=== PATIENT | female | born 1965 | race Caucasian/White ===

== ENCOUNTER 2016-09-08 19:10 | Emergency (ER) | payer OTHER ==
[~2016-09-08] VITALS: Ht 170.2 cm; Wt 102.3 kg
[~2016-09-08 19:10] MED LIST: CEFUROXIME500 MG PO; ESTRADIOL1 EA11 TD; LEVOFLOXACIN750 MG PO; MOBIC15 MG PO; NEXIUM20 MG PO; NEXIUM40 MG PO; SYNTHROID112 MCG PO
[2016-09-08 20:03] LABS: HEMATOCRIT 42.3 % (36.0-46.0); MCH 28.8 PG (29.0-34.0); MCHC 32.9 G/DL (30.0-36.0); MCV 87.8 FL (83-99); MEAN PLAT.VOLUME 10.1 uM^3 (9.5-12.4); PLATELET COUNT 275 K/uL (156-360); RBC DIS.WIDTH-CV 12.2 % (11.8-14.6); RBC DIS.WIDTH-SD 39.4 % (39-53); RED BLOOD COUNT 4.82 M/uL (3.80-5.20); WHITE BLOOD COUNT 7.9 K/uL (4.1-10.2)
[2016-09-08 20:12] LABS: CHLORIDE 107 mEq/L (99-109); POTASSIUM 4.4 mEq/L (3.7-5.4); SODIUM 138 mEq/L (136-147)
[2016-09-08 20:14] LABS: GLUCOSE 104 mg/dL (70-99)
[2016-09-08 20:15] LABS: ANION GAP 9 MEQ/L (2-14)
[2016-09-08 20:17] LABS: GFR ESTIMATE (CALCULATED) > 59 mL/min/
[2016-09-08 20:18] LABS: UREA NITROGEN (BUN) 13 mg/dL (9-23)
[2016-09-08 20:18] LABS: D-DIMER ELISA 0.28 mg/L FEU (< 0.57)
[2016-09-08 20:24] LABS: TROP-I INTERPRETATION NEGATIVE; TROPONIN-I < 0.01 ng/mL (0.0-0.30)
[2016-09-08 23:22] VITALS: BP 117/84
== END 2016-09-08 23:22 | disposition home or self-care (01) ==
LOC: EME 19:10
DX: R00.2 Palpitations (principal); E03.9 Hypothyroidism, unspecified; Z88.5 Allergy status to narcotic agent; Z91.041 Radiographic dye allergy status
CPT/HCPCS: 71020; 80048; 84443; 84484; 85027; 85379; 93005; 93971; 99281; 99285; J2060; J7030

== ENCOUNTER 2016-09-16 14:36 | Emergency (ER) | payer OTHER, BC ==
[~2016-09-16] VITALS: Ht 170.2 cm; Wt 100.0 kg
[2016-09-16 15:06] VITALS: BP 132/90
[2016-09-16 15:29] LABS: MCH 28.7 PG (29.0-34.0); MCHC 32.4 G/DL (30.0-36.0); MCV 88.6 FL (83-99); PLATELET COUNT 295 K/uL (156-360); RBC DIS.WIDTH-CV 12.2 % (11.8-14.6); RED BLOOD COUNT 4.74 M/uL (3.80-5.20); WHITE BLOOD COUNT 6.1 K/uL (4.1-10.2)
[2016-09-16 15:41] LABS: CHLORIDE 108 mEq/L (99-109); POTASSIUM 4.5 mEq/L (3.7-5.4); SODIUM 141 mEq/L (136-147)
[2016-09-16 15:42] LABS: GLUCOSE 106 mg/dL (70-99)
[2016-09-16 15:44] LABS: ANION GAP 8 MEQ/L (2-14)
[2016-09-16 15:46] LABS: GFR ESTIMATE (CALCULATED) > 59 mL/min/
[2016-09-16 15:47] LABS: UREA NITROGEN (BUN) 11 mg/dL (9-23)
[2016-09-16 15:53] LABS: TROP-I INTERPRETATION NEGATIVE; TROPONIN-I < 0.01 ng/mL (0.0-0.30)
== END 2016-09-16 18:05 | disposition left against medical advice (07) ==
LOC: EME 14:36
DX: R42 Dizziness and giddiness (principal); R07.89 Other chest pain; R20.0 Anesthesia of skin; R20.2 Paresthesia of skin; R11.0 Nausea; Z53.21 Procedure and treatment not carried out due to patient leaving prior to being seen by health care provider
CPT/HCPCS: 71020; 80048; 84484; 85027; 93005

== ENCOUNTER 2016-10-05 16:22 | Emergency (ER) | payer BC ==
[~2016-10-05] VITALS: Ht 170.2 cm; Wt 106.6 kg
[2016-10-05 17:11] LABS: EOSINOPHIL (%) 2.8 % (0-5); EOSINOPHIL COUNT 0.2 K/uL (0-0.3); HEMATOCRIT 40.9 % (36.0-46.0); IMMATURE GRANULOCYTE (%) 0.2 % (0.0-0.7); INSTRUMENT ABS NEUTROPHIL CT 3.5 K/uL; LYMPHOCYTE COUNT 2.3 K/uL (1.0-2.8); MCH 28.9 PG (29.0-34.0); MCHC 32.5 G/DL (30.0-36.0); MCV 88.9 FL (83-99); MEAN PLAT.VOLUME 9.3 uM^3 (9.5-12.4); MONOCYTE (%) 6.8 % (3-12); MONOCYTE COUNT 0.4 K/uL (0-0.8); NEUTROPHIL (%) 53.9 % (45-76); NEUTROPHIL COUNT 3.5 K/uL (1.8-6.4); PLATELET COUNT 252 K/uL (156-360); RBC DIS.WIDTH-CV 12.4 % (11.8-14.6); RBC DIS.WIDTH-SD 40.4 % (39-53); WHITE BLOOD COUNT 6.5 K/uL (4.1-10.2)
[2016-10-05 17:20] LABS: CHLORIDE 108 mEq/L (99-109); SODIUM 139 mEq/L (136-147)
[2016-10-05 17:21] LABS: MAGNESIUM 1.7 mg/dL (1.3-2.7)
[2016-10-05 17:22] LABS: GLUCOSE 119 mg/dL (70-99)
[2016-10-05 17:23] LABS: ANION GAP 10 MEQ/L (2-14)
[2016-10-05 17:24] LABS: D-DIMER ELISA 0.38 mg/L FEU (< 0.57); INTER. NORMALIZED RATIO 0.9; PROTHROMBIN TIME 9.5 (9.2-11.2); PTT 25.8 (25-32)
[2016-10-05 17:26] LABS: GFR ESTIMATE (CALCULATED) > 59 mL/min/
[2016-10-05 17:27] LABS: UREA NITROGEN (BUN) 12 mg/dL (9-23)
[2016-10-05 17:33] LABS: TROP-I INTERPRETATION NEGATIVE; TROPONIN-I < 0.01 ng/mL (0.0-0.30)
[2016-10-05 19:06] VITALS: BP 123/80
== END 2016-10-05 19:06 | disposition home or self-care (01) ==
LOC: EME 16:22
PROVIDERS: Emergency Medicine
DX: R00.2 Palpitations (principal); E03.9 Hypothyroidism, unspecified
CPT/HCPCS: 71010; 80048; 83735; 84484; 85025; 85379; 85610; 85730; 93005; 99281; 99285; J7030

== ENCOUNTER 2016-10-07 18:58 | Observation (INO) | payer BC ==
[~2016-10-07] VITALS: Ht 170.2 cm; Wt 103.2 kg
[2016-10-07 20:15] LABS: HEMATOCRIT 43.6 % (36.0-46.0); MCH 29.1 PG (29.0-34.0); MCV 88.3 FL (83-99); MEAN PLAT.VOLUME 9.8 uM^3 (9.5-12.4); PLATELET COUNT 275 K/uL (156-360); RBC DIS.WIDTH-CV 12.4 % (11.8-14.6); RBC DIS.WIDTH-SD 39.8 % (39-53); RED BLOOD COUNT 4.94 M/uL (3.80-5.20); WHITE BLOOD COUNT 7.6 K/uL (4.1-10.2)
[2016-10-07 20:29] LABS: CHLORIDE 107 mEq/L (99-109); SODIUM 139 mEq/L (136-147)
[2016-10-07 20:30] LABS: GLUCOSE 125 mg/dL (70-99)
[2016-10-07 20:32] LABS: ANION GAP 11 MEQ/L (2-14)
[2016-10-07 20:34] LABS: GFR ESTIMATE (CALCULATED) > 59 mL/min/
[2016-10-07 20:35] LABS: UREA NITROGEN (BUN) 16 mg/dL (9-23)
[2016-10-07 20:40] LABS: TROP-I INTERPRETATION NEGATIVE; TROPONIN-I < 0.01 ng/mL (0.0-0.30)
[2016-10-07 21:10] LABS: TOTAL BILIRUBIN 0.2 mg/dL (0.0-1.0)
[2016-10-07 21:11] LABS: ALKALINE PHOSPHATASE 59 IU/L (3-129)
[2016-10-07 21:14] LABS: DIRECT BILIRUBIN 0.1 mg/dL (0.0-0.3)
[2016-10-07 21:15] LABS: LIPASE 18 U/L (1.0-51.0)
[2016-10-07 23:18] VITALS: BP 119/74
[2016-10-08 03:57] VITALS: BP 90/54
[2016-10-08 05:23] LABS: HEMATOCRIT 37.7 % (36.0-46.0); MCH 29.6 PG (29.0-34.0); MCHC 33.2 G/DL (30.0-36.0); MCV 89.1 FL (83-99); MEAN PLAT.VOLUME 10.4 uM^3 (9.5-12.4); PLATELET COUNT 240 K/uL (156-360); RBC DIS.WIDTH-CV 12.6 % (11.8-14.6); RBC DIS.WIDTH-SD 41.2 % (39-53); RED BLOOD COUNT 4.23 M/uL (3.80-5.20); WHITE BLOOD COUNT 5.7 K/uL (4.1-10.2)
[2016-10-08 05:32] LABS: TROP-I INTERPRETATION NEGATIVE; TROPONIN-I < 0.01 ng/mL (0.0-0.30)
[2016-10-08 05:56] LABS: ALKALINE PHOSPHATASE 40 IU/L (3-129); ANION GAP 9 MEQ/L (2-14); CHLORIDE 108 MEQ/L (99-109); GFR ESTIMATE (CALCULATED) > 59 mL/min/; GLUCOSE 98 mg/dL (70-99); POTASSIUM 3.9 MEQ/L (3.7-5.4); SAMPLE HEMOLYSIS CHECK 0; SAMPLE ICTERIC CHECK 0; SAMPLE LIPEMIA CHECK 0; SODIUM 140 MEQ/L (136-147); TOTAL BILIRUBIN 0.4 MG/DL (0.0-1.0); UREA NITROGEN (BUN) 15 mg/dL (9-23)
[2016-10-08 06:11] VITALS: BP 110/73; BP 96/53
[2016-10-08 06:12] VITALS: BP 111/72
[2016-10-08 06:14] VITALS: BP 110/73; BP 111/72; BP 96/53
[2016-10-08 06:55] LABS: Estimated Average Glucose 128 mg/dL (70-123); HEMOGLOBIN A1c (GLYCOHEMOGLOB) 6.1 % HGB (Below 5.7)
[2016-10-08 08:45] VITALS: BP 117/59
[2016-10-08 09:50] LABS: TROP-I INTERPRETATION NEGATIVE; TROPONIN-I < 0.01 ng/mL (0.0-0.30)
[2016-10-08] MEDS ORDERED: ESTRADIOL1 EA12 TD (10:56)
[2016-10-08] MEDS ORDERED: LEVOTHYROXINE100 MCG PO (10:57)
[2016-10-08] MEDS ORDERED: VITAMIN C GUMMY PO (10:58)
[2016-10-08] MEDS ORDERED: LEVOTHYROXINE112 MCG PO (10:58)
[2016-10-08] MEDS ORDERED: [UNRECOGNIZED DRUG - OTHER] PO (11:01)
[2016-10-08] MEDS ORDERED: NITROSTAT0.4 MG SL (11:02)
[2016-10-08 11:40] VITALS: BP 122/84
== END 2016-10-08 12:58 | disposition home or self-care (01) ==
LOC: EME 18:58 → EDOF 21:46 → 5WEST 21:46 → EDOF 21:46 → 5WEST 22:57
PROVIDERS: Internal Medicine
DX: R07.9 Chest pain, unspecified (principal); R10.12 Left upper quadrant pain; Z91.19 Patient's noncompliance with other medical treatment and regimen; R42 Dizziness and giddiness; R00.2 Palpitations; G47.33 Obstructive sleep apnea (adult) (pediatric); E03.9 Hypothyroidism, unspecified; R73.9 Hyperglycemia, unspecified; E66.9 Obesity, unspecified; Z68.35 Body mass index [BMI] 35.0-35.9, adult; M79.89 Other specified soft tissue disorders
CPT/HCPCS: 71020; 74176; 80048; 80053; 80076; 83036; 83690; 84443; 84484; 85027; 93005; 94760; 94799; 99281; 99285; G0378; J1644; J7030

== ENCOUNTER 2016-10-13 18:21 | Emergency (ER) | payer BC ==
[~2016-10-13] VITALS: Ht 170.2 cm; Wt 105.1 kg
[~2016-10-13 18:21] MED LIST changes: +ESTRADIOL1 EA12 TD; +LEVOTHYROXINE100 MCG PO; +LEVOTHYROXINE112 MCG PO; +NITROSTAT0.4 MG SL; +VITAMIN C GUMMY PO; +[UNRECOGNIZED DRUG - OTHER] PO
[2016-10-13 19:09] LABS: MCHC 32.9 G/DL (30.0-36.0); PLATELET COUNT 275 K/uL (156-360); RBC DIS.WIDTH-CV 12.4 % (11.8-14.6); RBC DIS.WIDTH-SD 40.1 % (39-53); RED BLOOD COUNT 4.66 M/uL (3.80-5.20); WHITE BLOOD COUNT 6.7 K/uL (4.1-10.2)
[2016-10-13 19:17] LABS: CHLORIDE 106 mEq/L (99-109); POTASSIUM 3.8 mEq/L (3.7-5.4); SODIUM 137 mEq/L (136-147)
[2016-10-13 19:19] LABS: GLUCOSE 115 mg/dL (70-99)
[2016-10-13 19:21] LABS: ANION GAP 9 MEQ/L (2-14)
[2016-10-13 19:23] LABS: GFR ESTIMATE (CALCULATED) > 59 mL/min/
[2016-10-13 19:24] LABS: UREA NITROGEN (BUN) 13 mg/dL (9-23)
[2016-10-13 19:31] LABS: TROP-I INTERPRETATION NEGATIVE; TROPONIN-I < 0.01 ng/mL (0.0-0.30)
[2016-10-13 20:00] VITALS: BP 104/82
== END 2016-10-13 20:11 | disposition home or self-care (01) ==
LOC: EME 18:21
PROVIDERS: Emergency Medicine
DX: R42 Dizziness and giddiness (principal); R00.2 Palpitations; I10 Essential (primary) hypertension; K21.9 Gastro-esophageal reflux disease without esophagitis
CPT/HCPCS: 80048; 83735; 84484; 85027; 93005; 99281; 99284

== ENCOUNTER 2016-10-16 20:12 | Emergency (ER) | payer BC ==
[~2016-10-16] VITALS: Ht 170.2 cm; Wt 103.9 kg
[2016-10-16 20:52] LABS: HEMATOCRIT 42.1 % (36.0-46.0); MCV 87.9 FL (83-99); MEAN PLAT.VOLUME 10.1 uM^3 (9.5-12.4); PLATELET COUNT 284 K/uL (156-360); RBC DIS.WIDTH-CV 12.2 % (11.8-14.6); RBC DIS.WIDTH-SD 39.9 % (39-53); RED BLOOD COUNT 4.79 M/uL (3.80-5.20); WHITE BLOOD COUNT 7.8 K/uL (4.1-10.2)
[2016-10-16 21:08] LABS: CHLORIDE 107 mEq/L (99-109); POTASSIUM 4.1 mEq/L (3.7-5.4); SODIUM 139 mEq/L (136-147)
[2016-10-16 21:10] LABS: GLUCOSE 122 mg/dL (70-99)
[2016-10-16 21:11] LABS: ANION GAP 10 MEQ/L (2-14)
[2016-10-16 21:13] LABS: TROP-I INTERPRETATION NEGATIVE; TROPONIN-I < 0.01 ng/mL (0.0-0.30)
[2016-10-16 21:14] LABS: GFR ESTIMATE (CALCULATED) > 59 mL/min/
[2016-10-16 21:15] LABS: UREA NITROGEN (BUN) 12 mg/dL (9-23)
[2016-10-16 21:18] LABS: ADD MIUA? NO; BILIRUBIN NEGATIVE; BLOOD NEGATIVE; COLOR YELLOW ((YELLOW)); GLUCOSE (STRIP) NEGATIVE; KETONES NEGATIVE; LEUKOCYTES NEGATIVE; NITRITE NEGATIVE; PROTEIN (STRIP) NEGATIVE; SPECIFIC GRAVITY 1.013 (1.000-1.030); UCUL ADDED? NO; UROBILINOGEN 0.2 MG/DL (0.2-1.0)
[2016-10-16 21:43] LABS: TOTAL BILIRUBIN 0.2 mg/dL (0.0-1.0)
[2016-10-16 21:44] LABS: ALKALINE PHOSPHATASE 57 IU/L (3-129)
[2016-10-16 21:47] LABS: LIPASE 19 U/L (1.0-51.0)
[2016-10-16] MEDS ORDERED: REGLAN10 MG PO (22:14)
[2016-10-16 22:24] VITALS: BP 121/62
== END 2016-10-16 22:33 | disposition home or self-care (01) ==
LOC: EME 20:12
DX: K21.0 Gastro-esophageal reflux disease with esophagitis (principal); K44.9 Diaphragmatic hernia without obstruction or gangrene; I10 Essential (primary) hypertension
CPT/HCPCS: 71020; 80048; 80076; 81003; 83690; 84484; 85027; 93005; 99281; 99285; J2765; J7030

== ENCOUNTER 2016-11-10 16:56 | Emergency (ER) | payer BC ==
[~2016-11-10] VITALS: Ht 170.2 cm; Wt 104.9 kg
[~2016-11-10 16:56] MED LIST changes: +REGLAN10 MG PO
[2016-11-10 18:56] LABS: HEMATOCRIT 41.1 % (36.0-46.0); MCH 28.5 PG (29.0-34.0); MCHC 32.4 G/DL (30.0-36.0); MEAN PLAT.VOLUME 9.8 uM^3 (9.5-12.4); PLATELET COUNT 272 K/uL (156-360); RBC DIS.WIDTH-CV 12.3 % (11.8-14.6); RBC DIS.WIDTH-SD 39.5 % (39-53); RED BLOOD COUNT 4.67 M/uL (3.80-5.20); WHITE BLOOD COUNT 7.2 K/uL (4.1-10.2)
[2016-11-10 19:08] LABS: CHLORIDE 108 mEq/L (99-109); POTASSIUM 4.2 mEq/L (3.7-5.4); SODIUM 139 mEq/L (136-147)
[2016-11-10 19:10] LABS: GLUCOSE 108 mg/dL (70-99)
[2016-11-10 19:11] LABS: ANION GAP 7 MEQ/L (2-14)
[2016-11-10 19:13] LABS: GFR ESTIMATE (CALCULATED) > 59 mL/min/
[2016-11-10 19:14] LABS: UREA NITROGEN (BUN) 10 mg/dL (9-23)
[2016-11-10 20:16] VITALS: BP 142/98
== END 2016-11-10 20:18 | disposition home or self-care (01) ==
LOC: EME 16:56
PROVIDERS: Emergency Medicine
DX: B34.9 Viral infection, unspecified (principal)
CPT/HCPCS: 71020; 80048; 85027; 87651 90; 99281; 99285; J7030

== ENCOUNTER 2016-11-13 02:33 | Emergency (ER) | payer BC ==
[~2016-11-13] VITALS: Ht 170.2 cm; Wt 102.7 kg
[2016-11-13 02:58] LABS: HEMATOCRIT 40.6 % (36.0-46.0); MCH 28.9 PG (29.0-34.0); MCHC 32.8 G/DL (30.0-36.0); MCV 88.1 FL (83-99); MEAN PLAT.VOLUME 9.7 uM^3 (9.5-12.4); PLATELET COUNT 275 K/uL (156-360); RBC DIS.WIDTH-CV 12.5 % (11.8-14.6); RBC DIS.WIDTH-SD 40.3 % (39-53); RED BLOOD COUNT 4.61 M/uL (3.80-5.20); WHITE BLOOD COUNT 9.2 K/uL (4.1-10.2)
[2016-11-13 03:09] LABS: CHLORIDE 105 mEq/L (99-109); POTASSIUM 3.7 mEq/L (3.7-5.4); SODIUM 138 mEq/L (136-147)
[2016-11-13 03:12] LABS: GLUCOSE 118 mg/dL (70-99)
[2016-11-13 03:13] LABS: ANION GAP 10 MEQ/L (2-14); TOTAL BILIRUBIN 0.7 mg/dL (0.0-1.0)
[2016-11-13 03:15] LABS: ALKALINE PHOSPHATASE 58 IU/L (3-129); GFR ESTIMATE (CALCULATED) > 59 mL/min/
[2016-11-13 03:16] LABS: UREA NITROGEN (BUN) 11 mg/dL (9-23)
[2016-11-13 03:20] LABS: TROP-I INTERPRETATION NEGATIVE; TROPONIN-I < 0.01 ng/mL (0.0-0.30)
[2016-11-13 03:21] LABS: D-DIMER ELISA 0.41 mg/L FEU (< 0.57)
[2016-11-13] MEDS ORDERED: OMEPRAZOLE40 M1 PO (04:18)
[2016-11-13 05:03] VITALS: BP 148/88
== END 2016-11-13 05:04 | disposition home or self-care (01) ==
LOC: EME 02:33
PROVIDERS: Physician Assistant
DX: R00.2 Palpitations (principal); I10 Essential (primary) hypertension; K21.9 Gastro-esophageal reflux disease without esophagitis
CPT/HCPCS: 71020; 80053; 81003; 84443; 84484; 85027; 85379; 93005; 99281; 99285

== ENCOUNTER 2016-11-23 01:08 | Emergency (ER) | payer BC ==
[~2016-11-23] VITALS: Ht 170.2 cm; Wt 103.8 kg
[~2016-11-23 01:08] MED LIST changes: +OMEPRAZOLE40 M1 PO
[2016-11-23 01:13] VITALS: BP 125/97
[2016-11-23 02:30] LABS: HEMATOCRIT 42.4 % (36.0-46.0); MCH 28.8 PG (29.0-34.0); MCHC 32.8 G/DL (30.0-36.0); MEAN PLAT.VOLUME 10.2 uM^3 (9.5-12.4); PLATELET COUNT 288 K/uL (156-360); RBC DIS.WIDTH-CV 12.6 % (11.8-14.6); RBC DIS.WIDTH-SD 40.7 % (39-53); RED BLOOD COUNT 4.82 M/uL (3.80-5.20); WHITE BLOOD COUNT 6.6 K/uL (4.1-10.2)
[2016-11-23 02:41] LABS: CHLORIDE 108 mEq/L (99-109); POTASSIUM 4.2 mEq/L (3.7-5.4); SODIUM 140 mEq/L (136-147)
[2016-11-23 02:43] LABS: GLUCOSE 134 mg/dL (70-99)
[2016-11-23 02:44] LABS: ANION GAP 9 MEQ/L (2-14)
[2016-11-23 02:47] LABS: GFR ESTIMATE (CALCULATED) > 59 mL/min/
[2016-11-23 02:48] LABS: UREA NITROGEN (BUN) 16 mg/dL (9-23)
[2016-11-23 02:55] LABS: TROP-I INTERPRETATION NEGATIVE; TROPONIN-I < 0.01 ng/mL (0.0-0.30)
== END 2016-11-23 03:00 | disposition left against medical advice (07) ==
LOC: EME 01:08
DX: R03.0 Elevated blood-pressure reading, without diagnosis of hypertension (principal); R07.9 Chest pain, unspecified; Z53.21 Procedure and treatment not carried out due to patient leaving prior to being seen by health care provider
CPT/HCPCS: 71020; 80048; 84484; 85027; 93005

== ENCOUNTER 2016-12-04 00:11 | Emergency (ER) | payer OTHER ==
[~2016-12-04] VITALS: Ht 170.2 cm; Wt 105.1 kg
[2016-12-04 00:41] LABS: HEMATOCRIT 38.9 % (36.0-46.0); MCH 29.2 PG (29.0-34.0); MCHC 32.9 G/DL (30.0-36.0); MCV 88.6 FL (83-99); MEAN PLAT.VOLUME 9.6 uM^3 (9.5-12.4); PLATELET COUNT 266 K/uL (156-360); RBC DIS.WIDTH-CV 12.6 % (11.8-14.6); RBC DIS.WIDTH-SD 41.1 % (39-53); RED BLOOD COUNT 4.39 M/uL (3.80-5.20)
[2016-12-04 00:50] LABS: CHLORIDE 107 mEq/L (99-109); POTASSIUM 4.1 mEq/L (3.7-5.4); SODIUM 139 mEq/L (136-147)
[2016-12-04 00:52] LABS: GLUCOSE 106 mg/dL (70-99)
[2016-12-04 00:53] LABS: ANION GAP 8 MEQ/L (2-14)
[2016-12-04 00:56] LABS: GFR ESTIMATE (CALCULATED) > 59 mL/min/
[2016-12-04 00:57] LABS: UREA NITROGEN (BUN) 16 mg/dL (9-23)
[2016-12-04 01:06] LABS: TROP-I INTERPRETATION NEGATIVE; TROPONIN-I < 0.01 ng/mL (0.0-0.30)
[2016-12-04 02:17] LABS: D-DIMER ELISA 0.36 mg/L FEU (< 0.57)
[2016-12-04 02:41] LABS: ADD MIUA? NO; BILIRUBIN NEGATIVE; BLOOD NEGATIVE; COLOR YELLOW ((YELLOW)); GLUCOSE (STRIP) NEGATIVE; KETONES NEGATIVE; LEUKOCYTES NEGATIVE; NITRITE NEGATIVE; PROTEIN (STRIP) NEGATIVE; SPECIFIC GRAVITY 1.014 (1.000-1.030); UCUL ADDED? NO; UROBILINOGEN 0.2 MG/DL (0.2-1.0)
[2016-12-04] MEDS ORDERED: VALIUM2 MG PO (02:54)
[2016-12-04 03:36] VITALS: BP 112/57
== END 2016-12-04 03:36 | disposition home or self-care (01) ==
LOC: EXP 00:11 → EME 00:11 → EXP 03:36
PROVIDERS: Emergency Medicine
DX: R00.0 Tachycardia, unspecified (principal); I10 Essential (primary) hypertension; K21.9 Gastro-esophageal reflux disease without esophagitis
CPT/HCPCS: 71020; 80048; 81003; 83735; 84484; 85027; 85379; 93005; 99281; 99284

== ENCOUNTER 2016-12-10 13:17 | Emergency (ER) | payer OTHER ==
[~2016-12-10] VITALS: Ht 170.2 cm; Wt 103.2 kg
[~2016-12-10 13:17] MED LIST changes: +VALIUM2 MG PO
[2016-12-10 14:31] LABS: HEMATOCRIT 42.4 % (36.0-46.0); MCH 28.6 PG (29.0-34.0); MCHC 32.8 G/DL (30.0-36.0); MCV 87.2 FL (83-99); PLATELET COUNT 288 K/uL (156-360); RBC DIS.WIDTH-CV 12.5 % (11.8-14.6); RED BLOOD COUNT 4.86 M/uL (3.80-5.20); WHITE BLOOD COUNT 6.7 K/uL (4.1-10.2)
[2016-12-10 14:41] LABS: CHLORIDE 107 mEq/L (99-109); POTASSIUM 4.2 mEq/L (3.7-5.4); SODIUM 139 mEq/L (136-147)
[2016-12-10 14:43] LABS: GLUCOSE 102 mg/dL (70-99)
[2016-12-10 14:45] LABS: ANION GAP 14 MEQ/L (2-14)
[2016-12-10 14:47] LABS: GFR ESTIMATE (CALCULATED) > 59 mL/min/
[2016-12-10 14:48] LABS: UREA NITROGEN (BUN) 11 mg/dL (9-23)
[2016-12-10 14:52] LABS: TROP-I INTERPRETATION NEGATIVE; TROPONIN-I < 0.01 ng/mL (0.0-0.30)
[2016-12-10] MEDS ORDERED: VALIUM5 MG PO (15:59)
[2016-12-10] MEDS ORDERED: PREDNISONE10 MG PO (15:59)
[2016-12-10 16:20] VITALS: BP 133/82
== END 2016-12-10 16:22 | disposition home or self-care (01) ==
LOC: EME 13:17
DX: M54.12 Radiculopathy, cervical region (principal); R00.2 Palpitations; R42 Dizziness and giddiness; E03.9 Hypothyroidism, unspecified; Z90.49 Acquired absence of other specified parts of digestive tract; Z90.710 Acquired absence of both cervix and uterus
CPT/HCPCS: 71020; 72040; 80048; 84484; 85027; 93005; 99281; 99284; J1100

== ENCOUNTER 2017-01-06 13:51 | Emergency (ER) | payer OTHER, BC ==
[~2017-01-06] VITALS: Ht 170.2 cm; Wt 101.8 kg
[~2017-01-06 13:51] MED LIST changes: +PREDNISONE10 MG PO; +VALIUM5 MG PO
[2017-01-06 15:25] LABS: HEMATOCRIT 42.8 % (36.0-46.0); MCHC 33.2 G/DL (30.0-36.0); MCV 87.5 FL (83-99); MEAN PLAT.VOLUME 10.1 uM^3 (9.5-12.4); PLATELET COUNT 266 K/uL (156-360); RBC DIS.WIDTH-CV 12.3 % (11.8-14.6); RBC DIS.WIDTH-SD 39.5 % (39-53); RED BLOOD COUNT 4.89 M/uL (3.80-5.20); WHITE BLOOD COUNT 5.9 K/uL (4.1-10.2)
[2017-01-06 15:41] LABS: ADD MIUA? YES; BILIRUBIN NEGATIVE; BLOOD SMALL; COLOR YELLOW ((YELLOW)); GLUCOSE (STRIP) NEGATIVE; KETONES NEGATIVE; LEUKOCYTES NEGATIVE; NITRITE NEGATIVE; PROTEIN (STRIP) NEGATIVE; SPECIFIC GRAVITY 1.016 (1.000-1.030); UROBILINOGEN 0.2 MG/DL (0.2-1.0)
[2017-01-06 15:50] LABS: BACTERIA RARE /HPF; EPITHELIAL CELLS 1+ /HPF; HYALINE CASTS 0-5 /LPF; MUCUS TRACE /LPF; RED BLOOD CELLS 0-5 /HPF (0-5); UCUL ADDED? NO; WHITE BLOOD CELLS 0-5 /HPF (0-5)
[2017-01-06 15:54] LABS: CHLORIDE 105 mEq/L (99-109); POTASSIUM 4.1 mEq/L (3.7-5.4); SODIUM 136 mEq/L (136-147)
[2017-01-06 15:56] LABS: GLUCOSE 98 mg/dL (70-99)
[2017-01-06 15:57] LABS: ANION GAP 9 MEQ/L (2-14)
[2017-01-06 15:58] LABS: TOTAL BILIRUBIN 0.5 mg/dL (0.0-1.0)
[2017-01-06 16:00] LABS: ALKALINE PHOSPHATASE 60 IU/L (3-129); GFR ESTIMATE (CALCULATED) > 59 mL/min/
[2017-01-06 16:01] LABS: UREA NITROGEN (BUN) 10 mg/dL (9-23)
[2017-01-06 16:09] LABS: QUANTITATIVE HCG < 4.0 MIU/ML
[2017-01-06] MEDS ORDERED: FLAGYL500 MG PO (18:52)
[2017-01-06] MEDS ORDERED: CIPRO500 MG PO (18:52)
[2017-01-06] MEDS ORDERED: ZOFRAN ODT8 MG PO (18:52)
[2017-01-06 19:09] VITALS: BP 124/85
== END 2017-01-06 19:11 | disposition home or self-care (01) ==
LOC: EME 13:51
DX: K57.32 Diverticulitis of large intestine without perforation or abscess without bleeding (principal); R07.9 Chest pain, unspecified; R19.7 Diarrhea, unspecified; K44.9 Diaphragmatic hernia without obstruction or gangrene; Z90.49 Acquired absence of other specified parts of digestive tract; Z90.710 Acquired absence of both cervix and uterus; E03.9 Hypothyroidism, unspecified
CPT/HCPCS: 74176; 80053; 81003; 84702; 85027; 93005; 99281; 99283

== ENCOUNTER 2017-01-11 23:04 | Observation (INO) | payer OTHER ==
[~2017-01-11] VITALS: Ht 170.2 cm; Wt 103.0 kg
[~2017-01-11 23:04] MED LIST changes: +CIPRO500 MG PO; +ESTRADIOL TD; -ESTRADIOL1 EA12 TD; +FLAGYL500 MG PO; +VITAMIN D35000 UNIT PO; +ZOFRAN ODT8 MG PO; -[UNRECOGNIZED DRUG - OTHER] PO
[2017-01-12 00:32] LABS: HEMATOCRIT 38.3 % (36.0-46.0); MCH 29.3 PG (29.0-34.0); MCHC 33.2 G/DL (30.0-36.0); MCV 88.2 FL (83-99); MEAN PLAT.VOLUME 10.1 uM^3 (9.5-12.4); PLATELET COUNT 231 K/uL (156-360); RBC DIS.WIDTH-CV 12.1 % (11.8-14.6); RBC DIS.WIDTH-SD 39.4 % (39-53); RED BLOOD COUNT 4.34 M/uL (3.80-5.20); WHITE BLOOD COUNT 7.9 K/uL (4.1-10.2)
[2017-01-12 00:40] LABS: CHLORIDE 107 mEq/L (99-109); POTASSIUM 3.5 mEq/L (3.7-5.4); SODIUM 138 mEq/L (136-147)
[2017-01-12 00:42] LABS: ADD MIUA? YES; BILIRUBIN NEGATIVE; BLOOD NEGATIVE; COLOR YELLOW ((YELLOW)); GLUCOSE (STRIP) NEGATIVE; KETONES NEGATIVE; LEUKOCYTES SMALL; NITRITE NEGATIVE; PROTEIN (STRIP) NEGATIVE; SPECIFIC GRAVITY 1.019 (1.000-1.030); UROBILINOGEN 0.2 MG/DL (0.2-1.0)
[2017-01-12 00:43] LABS: GLUCOSE 121 mg/dL (70-99)
[2017-01-12 00:44] LABS: ANION GAP 10 MEQ/L (2-14)
[2017-01-12 00:45] LABS: BACTERIA 1+ /HPF; EPITHELIAL CELLS 2+ /HPF; MUCUS TRACE /LPF; RED BLOOD CELLS 0-5 /HPF (0-5); UCUL ADDED? NO; WHITE BLOOD CELLS 0-5 /HPF (0-5)
[2017-01-12 00:45] LABS: TOTAL BILIRUBIN 0.2 mg/dL (0.0-1.0)
[2017-01-12 00:46] LABS: ALKALINE PHOSPHATASE 47 IU/L (3-129); GFR ESTIMATE (CALCULATED) > 59 mL/min/
[2017-01-12 00:47] LABS: UREA NITROGEN (BUN) 10 mg/dL (9-23)
[2017-01-12 00:50] LABS: LIPASE 16 U/L (1.0-51.0)
[2017-01-12] MEDS ORDERED: BENTYL20 MG PO (05:56)
[2017-01-12] MEDS ORDERED: REGLAN10 MG PO (05:56)
[2017-01-12 08:48] VITALS: BP 116/63
[2017-01-12 09:00] VITALS: BP 112/61
[2017-01-12 10:29] LABS: TROP-I INTERPRETATION NEGATIVE; TROPONIN-I < 0.01 ng/mL (0.0-0.30)
[2017-01-12] MEDS ORDERED: DICYCLOMINE HCL20 MG PO (11:10)
[2017-01-12] MEDS ORDERED: DIAZEPAM5 MG PO (11:11)
[2017-01-12] MEDS ORDERED: OMEPRAZOLE40 M1 PO (11:12)
[2017-01-12 12:06] VITALS: BP 102/59
[2017-01-12 15:44] VITALS: BP 108/58
[2017-01-12 19:00] VITALS: BP 124/66
[2017-01-13 06:01] LABS: HEMATOCRIT 36.8 % (36.0-46.0); MCH 28.6 PG (29.0-34.0); MCHC 32.1 G/DL (30.0-36.0); MCV 89.3 FL (83-99); PLATELET COUNT 240 K/uL (156-360); RBC DIS.WIDTH-CV 12.6 % (11.8-14.6); RBC DIS.WIDTH-SD 41.6 % (39-53); RED BLOOD COUNT 4.12 M/uL (3.80-5.20)
[2017-01-13 06:41] LABS: ANION GAP 6 MEQ/L (2-14); CHLORIDE 109 MEQ/L (99-109); GFR ESTIMATE (CALCULATED) > 59 mL/min/; GLUCOSE 116 mg/dL (70-99); POTASSIUM 4.2 MEQ/L (3.7-5.4); SAMPLE HEMOLYSIS CHECK 0; SAMPLE ICTERIC CHECK 0; SAMPLE LIPEMIA CHECK 0; SODIUM 138 MEQ/L (136-147); UREA NITROGEN (BUN) 9 mg/dL (9-23)
[2017-01-13 07:46] VITALS: BP 136/76
[2017-01-13 10:05] VITALS: BP 133/66
[2017-01-13] MEDS ORDERED: SUCRALFATE1 GM PO (11:38)
[2017-01-13] MEDS ORDERED: OMEPRAZOLE40 M1 PO (11:38)
[2017-01-13] MEDS ORDERED: BENADRYL50 MG PO (23:52)
== END 2017-01-13 12:30 | disposition home or self-care (01) ==
LOC: EME 23:04 → EDOF 01-12 07:06 → 5WEST 01-12 07:06 → EDOF 01-12 07:06 → ENRESERV 01-12 07:11 → EDOF 01-12 07:36 → 5WEST 01-12 08:29
PROVIDERS: Emergency Medicine; Internal Medicine
PROC: 0DB98ZX Excision of Duodenum, Via Natural or Artificial Opening Endoscopic, Diagnostic (ICD-10-PCS; principal; 2017-01-13)
DX: K22.10 Ulcer of esophagus without bleeding (principal); K25.9 Gastric ulcer, unspecified as acute or chronic, without hemorrhage or perforation; K44.9 Diaphragmatic hernia without obstruction or gangrene; G89.29 Other chronic pain; R10.12 Left upper quadrant pain; R10.13 Epigastric pain; G47.33 Obstructive sleep apnea (adult) (pediatric); E03.9 Hypothyroidism, unspecified; E05.00 Thyrotoxicosis with diffuse goiter without thyrotoxic crisis or storm; E87.6 Hypokalemia; R19.7 Diarrhea, unspecified; E66.9 Obesity, unspecified; Z68.35 Body mass index [BMI] 35.0-35.9, adult; Z90.710 Acquired absence of both cervix and uterus; Z79.890 Hormone replacement therapy; Z90.49 Acquired absence of other specified parts of digestive tract; Z91.041 Radiographic dye allergy status; Z88.5 Allergy status to narcotic agent; Z88.8 Allergy status to other drugs, medicaments and biological substances
CPT/HCPCS: 71010; 74177; 80048; 80053; 81003; 83605; 83690; 84484; 85027; 87040; 88305; 93005; 99281; 99284; G0378; J1200; J1650; J2405; J2765; J2930; J3010; J7030; J7120

== ENCOUNTER 2017-01-13 21:52 | Emergency (ER) | payer OTHER ==
[~2017-01-13] VITALS: Ht 170.2 cm; Wt 102.8 kg
[~2017-01-13 21:52] MED LIST changes: +BENTYL20 MG PO; +DIAZEPAM5 MG PO; +DICYCLOMINE HCL20 MG PO; +SUCRALFATE1 GM PO
[2017-01-13 22:45] LABS: HEMATOCRIT 39.2 % (36.0-46.0); MCH 29.3 PG (29.0-34.0); MCHC 33.7 G/DL (30.0-36.0); MCV 87.1 FL (83-99); MEAN PLAT.VOLUME 9.9 uM^3 (9.5-12.4); PLATELET COUNT 252 K/uL (156-360); RBC DIS.WIDTH-CV 12.5 % (11.8-14.6); RBC DIS.WIDTH-SD 40.2 % (39-53); WHITE BLOOD COUNT 7.5 K/uL (4.1-10.2)
[2017-01-13 22:53] LABS: CHLORIDE 107 mEq/L (99-109); POTASSIUM 3.5 mEq/L (3.7-5.4); SODIUM 138 mEq/L (136-147)
[2017-01-13 22:55] LABS: GLUCOSE 107 mg/dL (70-99)
[2017-01-13 22:56] LABS: ANION GAP 9 MEQ/L (2-14)
[2017-01-13 22:59] LABS: GFR ESTIMATE (CALCULATED) > 59 mL/min/; UREA NITROGEN (BUN) 10 mg/dL (9-23)
[2017-01-13] MEDS ORDERED: BENADRYL50 MG PO (23:52)
[2017-01-14 00:12] VITALS: BP 132/92
== END 2017-01-14 00:15 | disposition home or self-care (01) ==
LOC: EME 21:52 → RME 21:52
PROVIDERS: Physician Assistant
DX: T50.8X5A Adverse effect of diagnostic agents, initial encounter (principal); R20.8 Other disturbances of skin sensation; K21.9 Gastro-esophageal reflux disease without esophagitis; I10 Essential (primary) hypertension; E03.9 Hypothyroidism, unspecified
CPT/HCPCS: 80048 91; 85027; 99281; 99284; J1200; J2930; J7030; S0028

== ENCOUNTER 2017-02-11 | Emergency (ER) | payer OTHER ==
[~2017-02-11] VITALS: Ht 170.2 cm; Wt 100.4 kg
[~2017-02-11] MED LIST changes: +BENADRYL50 MG PO
[2017-02-11 00:07] VITALS: BP 138/98
[2017-02-11 00:39] LABS: HEMATOCRIT 40.6 % (36.0-46.0); MCHC 33.3 G/DL (30.0-36.0); MCV 87.1 FL (83-99); MEAN PLAT.VOLUME 10.3 uM^3 (9.5-12.4); PLATELET COUNT 260 K/uL (156-360); RBC DIS.WIDTH-CV 11.9 % (11.8-14.6); RBC DIS.WIDTH-SD 38.5 % (39-53); RED BLOOD COUNT 4.66 M/uL (3.80-5.20); WHITE BLOOD COUNT 8.1 K/uL (4.1-10.2)
[2017-02-11 00:46] LABS: D-DIMER ELISA < 150.00 ng/mLDDU (<230)
[2017-02-11 00:52] LABS: CHLORIDE 110 mEq/L (99-109); POTASSIUM 3.8 mEq/L (3.7-5.4); SODIUM 141 mEq/L (136-147)
[2017-02-11 00:54] LABS: GLUCOSE 131 mg/dL (70-99)
[2017-02-11 00:55] LABS: ANION GAP 10 MEQ/L (2-14)
[2017-02-11 00:56] LABS: TOTAL BILIRUBIN 0.3 mg/dL (0.0-1.0)
[2017-02-11 00:58] LABS: ALKALINE PHOSPHATASE 56 IU/L (3-129); GFR ESTIMATE (CALCULATED) 56 mL/min/
[2017-02-11 00:59] LABS: UREA NITROGEN (BUN) 11 mg/dL (9-23)
[2017-02-11 01:00] LABS: TROP-I INTERPRETATION NEGATIVE; TROPONIN-I < 0.01 ng/mL (0.0-0.30)
[2017-02-11 01:01] LABS: LIPASE 36 U/L (1.0-51.0)
== END 2017-02-11 01:57 | disposition left against medical advice (07) ==
LOC: EME
PROVIDERS: Emergency Medicine
DX: R00.2 Palpitations (principal); R07.9 Chest pain, unspecified; R10.13 Epigastric pain; I10 Essential (primary) hypertension; E03.9 Hypothyroidism, unspecified; K21.9 Gastro-esophageal reflux disease without esophagitis
CPT/HCPCS: 71020; 80053; 81003; 83690; 84484; 85027; 85379; 93005; 99281; 99284

== ENCOUNTER 2017-02-17 20:35 | Emergency (ER) | payer OTHER ==
[~2017-02-17] VITALS: Ht 170.2 cm; Wt 100.2 kg
[2017-02-17 20:57] LABS: HEMATOCRIT 40.8 % (36.0-46.0); MCH 28.9 PG (29.0-34.0); MCHC 33.3 G/DL (30.0-36.0); MCV 86.8 FL (83-99); MEAN PLAT.VOLUME 9.9 uM^3 (9.5-12.4); PLATELET COUNT 248 K/uL (156-360); RBC DIS.WIDTH-CV 12.1 % (11.8-14.6); RBC DIS.WIDTH-SD 38.8 % (39-53); WHITE BLOOD COUNT 8.4 K/uL (4.1-10.2)
[2017-02-17 21:08] LABS: CHLORIDE 104 mEq/L (99-109); POTASSIUM 3.7 mEq/L (3.7-5.4); SODIUM 137 mEq/L (136-147)
[2017-02-17 21:09] LABS: GLUCOSE 101 mg/dL (70-99)
[2017-02-17 21:11] LABS: ANION GAP 11 MEQ/L (2-14)
[2017-02-17 21:13] LABS: GFR ESTIMATE (CALCULATED) > 59 mL/min/
[2017-02-17 21:14] LABS: UREA NITROGEN (BUN) 11 mg/dL (9-23)
[2017-02-17 21:17] LABS: TROP-I INTERPRETATION NEGATIVE; TROPONIN-I < 0.01 ng/mL (0.0-0.30)
[2017-02-17 22:16] LABS: D-DIMER ELISA < 150.00 ng/mLDDU (<230)
[2017-02-18 01:11] VITALS: BP 127/89
== END 2017-02-18 01:12 | disposition home or self-care (01) ==
LOC: EME 20:35
PROVIDERS: Emergency Medicine
DX: R00.2 Palpitations (principal); K44.9 Diaphragmatic hernia without obstruction or gangrene; E03.9 Hypothyroidism, unspecified; I10 Essential (primary) hypertension; K21.9 Gastro-esophageal reflux disease without esophagitis; F41.9 Anxiety disorder, unspecified
CPT/HCPCS: 71020; 80048; 84439; 84443; 84484; 85027; 85379; 93005; 93971; 99281; 99285

== ENCOUNTER 2017-04-05 21:25 | Inpatient (IN) | payer OTHER, BC ==
[~2017-04-05] VITALS: Ht 170.2 cm; Wt 98.7 kg
[2017-04-05 21:51] LABS: HEMATOCRIT 36.7 % (36.0-46.0); MCH 29.4 PG (29.0-34.0); MCHC 32.4 G/DL (30.0-36.0); MCV 90.6 FL (83-99); MEAN PLAT.VOLUME 9.7 uM^3 (9.5-12.4); PLATELET COUNT 294 K/uL (156-360); RBC DIS.WIDTH-CV 13.1 % (11.8-14.6); RBC DIS.WIDTH-SD 42.7 % (39-53); RED BLOOD COUNT 4.05 M/uL (3.80-5.20); WHITE BLOOD COUNT 7.8 K/uL (4.1-10.2)
[2017-04-05 22:05] LABS: CHLORIDE 105 mEq/L (99-109); POTASSIUM 3.9 mEq/L (3.7-5.4); SODIUM 138 mEq/L (136-147)
[2017-04-05 22:06] LABS: GLUCOSE 117 mg/dL (70-99)
[2017-04-05 22:08] LABS: ANION GAP 11 MEQ/L (2-14)
[2017-04-05 22:10] LABS: GFR ESTIMATE (CALCULATED) > 59 mL/min/
[2017-04-05 22:11] LABS: UREA NITROGEN (BUN) 10 mg/dL (9-23)
[2017-04-05 22:14] LABS: TROP-I INTERPRETATION NEGATIVE; TROPONIN-I < 0.01 ng/mL (0.0-0.30)
[2017-04-06 04:29] LABS: TROP-I INTERPRETATION NEGATIVE; TROPONIN-I < 0.01 ng/mL (0.0-0.30)
[2017-04-06 06:22] VITALS: BP 152/76
[2017-04-06 08:07] VITALS: BP 124/75
[2017-04-06 09:59] LABS: TROP-I INTERPRETATION NEGATIVE; TROPONIN-I < 0.01 ng/mL (0.0-0.30)
[2017-04-06 16:00] VITALS: BP 111/60
[2017-04-06 20:13] VITALS: BP 119/67
[2017-04-06 23:29] VITALS: BP 127/72
[2017-04-07 01:35] LABS: TOTAL BILIRUBIN 0.5 mg/dL (0.0-1.0)
[2017-04-07 01:36] LABS: ALKALINE PHOSPHATASE 118 IU/L (3-129)
[2017-04-07 01:39] LABS: DIRECT BILIRUBIN 0.2 mg/dL (0.0-0.3)
[2017-04-07 04:14] VITALS: BP 106/70
[2017-04-07 05:44] LABS: BASOPHIL COUNT 0.1 K/uL (0-0.1); EOSINOPHIL (%) 1.2 % (0-5); EOSINOPHIL COUNT 0.1 K/uL (0-0.3); HEMATOCRIT 35.2 % (36.0-46.0); IMMATURE GRANULOCYTE (%) 0.3 % (0.0-0.7); INSTRUMENT ABS NEUTROPHIL CT 5.8 K/uL; LYMPHOCYTE COUNT 1.2 K/uL (1.0-2.8); MCH 28.6 PG (29.0-34.0); MCHC 31.8 G/DL (30.0-36.0); MONOCYTE (%) 4.8 % (3-12); MONOCYTE COUNT 0.4 K/uL (0-0.8); NEUTROPHIL (%) 76.8 % (45-76); NEUTROPHIL COUNT 5.8 K/uL (1.8-6.4); PLATELET COUNT 257 K/uL (156-360); RBC DIS.WIDTH-CV 12.9 % (11.8-14.6); RBC DIS.WIDTH-SD 42.6 % (39-53); RED BLOOD COUNT 3.91 M/uL (3.80-5.20); WHITE BLOOD COUNT 7.5 K/uL (4.1-10.2)
[2017-04-07 06:04] LABS: ALKALINE PHOSPHATASE 119 IU/L (3-129); ANION GAP 8 MEQ/L (2-14); CHLORIDE 106 MEQ/L (99-109); GFR ESTIMATE (CALCULATED) > 59 mL/min/; GLUCOSE 138 mg/dL (70-99); MAGNESIUM 1.9 mg/dl (1.3-2.7); POTASSIUM 4.8 MEQ/L (3.7-5.4); SAMPLE HEMOLYSIS CHECK 0; SAMPLE ICTERIC CHECK 0; SAMPLE LIPEMIA CHECK 0; SODIUM 137 MEQ/L (136-147); TOTAL BILIRUBIN 0.5 MG/DL (0.0-1.0); UREA NITROGEN (BUN) 6 mg/dL (9-23)
[2017-04-07 07:37] VITALS: BP 116/76
[2017-04-07 10:23] LABS: INTERNAL CONTROL VALID? YES
[2017-04-07 11:45] VITALS: BP 120/70
[2017-04-07 16:31] VITALS: BP 120/80
[2017-04-08 00:08] VITALS: BP 116/76
[2017-04-08 04:00] VITALS: BP 142/80
[2017-04-08 06:59] VITALS: BP 118/59
[2017-04-08 11:15] VITALS: BP 101/59
[2017-04-08] MEDS ORDERED: ESTRADIOL1 EAC9 TD (11:24)
[2017-04-08] MEDS ORDERED: PROGESTERONE100 MG PO (11:26)
[2017-04-08] MEDS ORDERED: HYDROMORPHONE HC2 MG PO (11:26)
[2017-04-08] MEDS ORDERED: FLONASE16 G1 BOTH NARES (11:27)
[2017-04-08] MEDS ORDERED: VIVA PATCH1 EACH TP (11:28)
[2017-04-08] MEDS ORDERED: ATIVAN0.5 MG PO (11:28)
[2017-04-08 15:13] VITALS: BP 101/64
[2017-04-08 22:49] VITALS: BP 119/58
[2017-04-09 03:34] VITALS: BP 105/70
[2017-04-09 06:53] LABS: BASOPHIL COUNT 0.1 K/uL (0-0.1); EOSINOPHIL (%) 8.1 % (0-5); EOSINOPHIL COUNT 0.6 K/uL (0-0.3); HEMATOCRIT 32.1 % (36.0-46.0); IMMATURE GRANULOCYTE (%) 0.1 % (0.0-0.7); INSTRUMENT ABS NEUTROPHIL CT 3.9 K/uL; LYMPHOCYTE COUNT 1.7 K/uL (1.0-2.8); MCH 28.5 PG (29.0-34.0); MCHC 31.5 G/DL (30.0-36.0); MCV 90.7 FL (83-99); MEAN PLAT.VOLUME 10.1 uM^3 (9.5-12.4); MONOCYTE COUNT 0.6 K/uL (0-0.8); NEUTROPHIL (%) 57.4 % (45-76); NEUTROPHIL COUNT 3.9 K/uL (1.8-6.4); PLATELET COUNT 215 K/uL (156-360); RBC DIS.WIDTH-CV 13.1 % (11.8-14.6); RED BLOOD COUNT 3.54 M/uL (3.80-5.20); WHITE BLOOD COUNT 6.8 K/uL (4.1-10.2)
[2017-04-09 07:21] LABS: ANION GAP 7 MEQ/L (2-14); CHLORIDE 106 MEQ/L (99-109); GFR ESTIMATE (CALCULATED) 23 mL/min/; SAMPLE HEMOLYSIS CHECK 0; SAMPLE ICTERIC CHECK 0; SAMPLE LIPEMIA CHECK 0; SODIUM 139 MEQ/L (136-147); UREA NITROGEN (BUN) 11 mg/dL (9-23)
[2017-04-09 07:22] LABS: GLUCOSE 99 mg/dL (70-99)
[2017-04-09 08:21] VITALS: BP 114/59
[2017-04-09 09:37] LABS: ANION GAP 9 MEQ/L (2-14); CHLORIDE 106 MEQ/L (99-109); GFR ESTIMATE (CALCULATED) 23 mL/min/; GLUCOSE 123 mg/dL (70-99); POTASSIUM 3.7 MEQ/L (3.7-5.4); SAMPLE HEMOLYSIS CHECK 0; SAMPLE ICTERIC CHECK 0; SAMPLE LIPEMIA CHECK 0; SODIUM 139 MEQ/L (136-147); UREA NITROGEN (BUN) 11 mg/dL (9-23)
[2017-04-09 10:18] LABS: ADD MIUA? YES; BILIRUBIN NEGATIVE; BLOOD SMALL; COLOR YELLOW ((YELLOW)); GLUCOSE (STRIP) NEGATIVE; KETONES NEGATIVE; LEUKOCYTES TRACE; NITRITE NEGATIVE; PROTEIN (STRIP) NEGATIVE; SPECIFIC GRAVITY 1.005 (1.000-1.030); UROBILINOGEN 0.2 MG/DL (0.2-1.0)
[2017-04-09 10:21] LABS: BACTERIA RARE /HPF; EPITHELIAL CELLS RARE /HPF; MUCUS TRACE /LPF; RED BLOOD CELLS 0-5 /HPF (0-5); UCUL ADDED? NO; WHITE BLOOD CELLS 0-5 /HPF (0-5)
[2017-04-09 15:20] VITALS: BP 136/68
[2017-04-09 22:26] VITALS: BP 149/71
[2017-04-10 06:11] LABS: EOSINOPHIL COUNT 0.4 K/uL (0-0.3); IMMATURE GRANULOCYTE (%) 0.3 % (0.0-0.7); INSTRUMENT ABS NEUTROPHIL CT 4.7 K/uL; LYMPHOCYTE COUNT 1.4 K/uL (1.0-2.8); MCH 28.7 PG (29.0-34.0); MCHC 31.9 G/DL (30.0-36.0); MCV 90.1 FL (83-99); MEAN PLAT.VOLUME 10.3 uM^3 (9.5-12.4); MONOCYTE (%) 9.1 % (3-12); MONOCYTE COUNT 0.7 K/uL (0-0.8); NEUTROPHIL (%) 65.1 % (45-76); NEUTROPHIL COUNT 4.7 K/uL (1.8-6.4); PLATELET COUNT 180 K/uL (156-360); RBC DIS.WIDTH-CV 13.1 % (11.8-14.6); RED BLOOD COUNT 3.55 M/uL (3.80-5.20); WHITE BLOOD COUNT 7.2 K/uL (4.1-10.2)
[2017-04-10 06:22] LABS: ANION GAP 8 MEQ/L (2-14); CHLORIDE 108 MEQ/L (99-109); GFR ESTIMATE (CALCULATED) 24 mL/min/; GLUCOSE 113 mg/dL (70-99); POTASSIUM 3.8 MEQ/L (3.7-5.4); SAMPLE HEMOLYSIS CHECK 0; SAMPLE ICTERIC CHECK 0; SAMPLE LIPEMIA CHECK 0; SODIUM 138 MEQ/L (136-147); UREA NITROGEN (BUN) 8 mg/dL (9-23)
[2017-04-10 07:35] VITALS: BP 142/80
[2017-04-10 12:58] LABS: C DIFF TOXIN NEGATIVE (NEGATIVE)
[2017-04-10 13:06] LABS: PROBE CHECK PASS; SPECIMEN PROCESSING CONTROL PASS
[2017-04-10 15:25] VITALS: BP 128/67
[2017-04-10 23:42] VITALS: BP 126/70
[2017-04-11 06:01] LABS: EOSINOPHIL COUNT 0.3 K/uL (0-0.3); HEMATOCRIT 32.1 % (36.0-46.0); IMMATURE GRANULOCYTE (%) 0.3 % (0.0-0.7); INSTRUMENT ABS NEUTROPHIL CT 4.8 K/uL; LYMPHOCYTE COUNT 1.5 K/uL (1.0-2.8); MCH 28.2 PG (29.0-34.0); MCHC 31.2 G/DL (30.0-36.0); MCV 90.4 FL (83-99); MEAN PLAT.VOLUME 10.4 uM^3 (9.5-12.4); MONOCYTE (%) 7.6 % (3-12); MONOCYTE COUNT 0.6 K/uL (0-0.8); NEUTROPHIL (%) 66.6 % (45-76); NEUTROPHIL COUNT 4.8 K/uL (1.8-6.4); PLATELET COUNT 178 K/uL (156-360); RBC DIS.WIDTH-SD 43.3 % (39-53); RED BLOOD COUNT 3.55 M/uL (3.80-5.20); WHITE BLOOD COUNT 7.2 K/uL (4.1-10.2)
[2017-04-11 06:23] LABS: ANION GAP 10 MEQ/L (2-14); CHLORIDE 110 MEQ/L (99-109); GFR ESTIMATE (CALCULATED) 25 mL/min/; GLUCOSE 128 mg/dL (70-99); POTASSIUM 4.1 MEQ/L (3.7-5.4); SAMPLE HEMOLYSIS CHECK 0; SAMPLE ICTERIC CHECK 0; SAMPLE LIPEMIA CHECK 0; SODIUM 140 MEQ/L (136-147); UREA NITROGEN (BUN) 6 mg/dL (9-23)
[2017-04-11 07:13] VITALS: BP 138/79
[2017-04-11 08:50] VITALS: BP 155/78
[2017-04-11] MEDS ORDERED: HYDROMORPHONE HC2 MG PO (13:37)
[2017-04-11] MEDS ORDERED: AMOX TR-K CLV1 EAC3 PO (13:37)
[2017-04-11] MEDS ORDERED: LEVOFLOXACIN750 MG PO (13:37)
== END 2017-04-11 14:25 | disposition home health service (06) | DRG 194 ==
LOC: EME 21:25 → EDOF 04-06 02:44 → 5EAST 04-06 02:44 → ENRESERV 04-06 02:46 → CANRESERV 04-06 02:46 → ENRESERV 04-06 02:55 → 5EAST 04-06 05:42
PROVIDERS: Emergency Medicine; Hospitalist; Internal Medicine Nephrology; Physician Assistant
DX: J18.9 Pneumonia, unspecified organism (principal); N17.9 Acute kidney failure, unspecified; K44.9 Diaphragmatic hernia without obstruction or gangrene; E03.9 Hypothyroidism, unspecified; R55 Syncope and collapse; R09.02 Hypoxemia; E86.0 Dehydration; D72.1 Eosinophilia; I10 Essential (primary) hypertension; K21.9 Gastro-esophageal reflux disease without esophagitis; F41.9 Anxiety disorder, unspecified; Y95 Nosocomial condition; K57.30 Diverticulosis of large intestine without perforation or abscess without bleeding; D35.01 Benign neoplasm of right adrenal gland; M47.816 Spondylosis without myelopathy or radiculopathy, lumbar region; T39.395A Adverse effect of other nonsteroidal anti-inflammatory drugs [NSAID], initial encounter; Z68.34 Body mass index [BMI] 34.0-34.9, adult; Z79.899 Other long term (current) drug therapy; Z90.49 Acquired absence of other specified parts of digestive tract
CPT/HCPCS: 71020; 71250; 74176; 76770; 80048; 80048 91; 80053; 80076; 80202; 81003; 83605; 83735; 84484; 85025; 85027; 87040; 87070; 87205; 87449; 87493; 89190; 93005; 94799; 99202; 99281; 99285; J0780; J1170; J1956; J2405; J2543; J2765; J3370; J7030; J7050; S0028

== ENCOUNTER 2017-05-07 23:56 | Observation (INO) | payer OTHER ==
[~2017-05-07] VITALS: Ht 170.2 cm; Wt 93.3 kg
[~2017-05-07 23:56] MED LIST changes: +AMOX TR-K CLV1 EAC3 PO; +ATIVAN0.5 MG PO; +ESTRADIOL1 EAC9 TD; +FLONASE16 G1 BOTH NARES; +HYDROMORPHONE HC2 MG PO; +PROGESTERONE100 MG PO; +VIVA PATCH1 EACH TP
[2017-05-08 01:18] LABS: HEMATOCRIT 38.3 % (36.0-46.0); MCH 28.5 PG (29.0-34.0); MCHC 32.1 G/DL (30.0-36.0); MCV 88.9 FL (83-99); MEAN PLAT.VOLUME 10.7 uM^3 (9.5-12.4); PLATELET COUNT 206 K/uL (156-360); RBC DIS.WIDTH-SD 42.7 % (39-53); RED BLOOD COUNT 4.31 M/uL (3.80-5.20); WHITE BLOOD COUNT 5.8 K/uL (4.1-10.2)
[2017-05-08 01:19] LABS: CHLORIDE 106 mEq/L (99-109); POTASSIUM 3.4 mEq/L (3.7-5.4); SODIUM 140 mEq/L (136-147)
[2017-05-08 01:20] LABS: GLUCOSE 109 mg/dL (70-99)
[2017-05-08 01:22] LABS: ANION GAP 11 MEQ/L (2-14)
[2017-05-08 01:24] LABS: GFR ESTIMATE (CALCULATED) > 59 mL/min/
[2017-05-08 01:25] LABS: UREA NITROGEN (BUN) 5 mg/dL (9-23)
[2017-05-08 01:34] LABS: TROP-I INTERPRETATION NEGATIVE; TROPONIN-I < 0.01 ng/mL (0.0-0.30)
[2017-05-08 02:24] LABS: TOTAL BILIRUBIN 0.4 mg/dL (0.0-1.0)
[2017-05-08 02:25] LABS: ALKALINE PHOSPHATASE 99 IU/L (3-129)
[2017-05-08 02:28] LABS: DIRECT BILIRUBIN 0.2 mg/dL (0.0-0.3)
[2017-05-08 02:29] LABS: LIPASE 9 U/L (1.0-51.0)
[2017-05-08 02:34] LABS: PROTHROMBIN TIME 11.1 SEC (10.2-12.9)
[2017-05-08] MEDS ORDERED: HYDROMORPHONE HC2 MG PO (11:00)
[2017-05-08] MEDS ORDERED: ONDANSETRON ODT4 MG PO (11:01)
[2017-05-08 12:24] LABS: TROP-I INTERPRETATION NEGATIVE; TROPONIN-I < 0.01 ng/mL (0.0-0.30)
[2017-05-08 12:40] VITALS: BP 139/89
[2017-05-08 15:24] VITALS: BP 120/74
[2017-05-08 18:15] LABS: TROP-I INTERPRETATION NEGATIVE; TROPONIN-I < 0.01 ng/mL (0.0-0.30)
[2017-05-08 20:00] VITALS: BP 119/56
[2017-05-09] VITALS (7 sets, daily range): BP systolic 112–130; BP diastolic 64–74
[2017-05-09 05:19] LABS: EOSINOPHIL COUNT 0.2 K/uL (0-0.3); HEMATOCRIT 32.7 % (36.0-46.0); IMMATURE GRANULOCYTE (%) 0.3 % (0.0-0.7); INSTRUMENT ABS NEUTROPHIL CT 1.7 K/uL; LYMPHOCYTE COUNT 1.8 K/uL (1.0-2.8); MCH 28.5 PG (29.0-34.0); MCHC 32.1 G/DL (30.0-36.0); MCV 88.9 FL (83-99); MEAN PLAT.VOLUME 10.5 uM^3 (9.5-12.4); MONOCYTE (%) 7.3 % (3-12); MONOCYTE COUNT 0.3 K/uL (0-0.8); NEUTROPHIL (%) 43.1 % (45-76); NEUTROPHIL COUNT 1.7 K/uL (1.8-6.4); PLATELET COUNT 179 K/uL (156-360); RBC DIS.WIDTH-CV 13.1 % (11.8-14.6); RBC DIS.WIDTH-SD 43.1 % (39-53); RED BLOOD COUNT 3.68 M/uL (3.80-5.20)
[2017-05-09 05:45] LABS: ANION GAP 7 MEQ/L (2-14); CHLORIDE 106 MEQ/L (99-109); GFR ESTIMATE (CALCULATED) > 59 mL/min/; GLUCOSE 107 mg/dL (70-99); POTASSIUM 3.6 MEQ/L (3.7-5.4); SAMPLE HEMOLYSIS CHECK 0; SAMPLE ICTERIC CHECK 0; SAMPLE LIPEMIA CHECK 0; SODIUM 141 MEQ/L (136-147); UREA NITROGEN (BUN) 4 mg/dL (9-23)
[2017-05-09 10:07] LABS: C-REACTIVE PROTEIN 1.8 MG/L (0-10)
[2017-05-09 13:05] LABS: IRON 94 MCG/DL (35-150)
[2017-05-09 14:11] LABS: FERRITIN 35 NG/ML (10-291)
[2017-05-10 04:53] VITALS: BP 131/69
[2017-05-10 05:25] LABS: EOSINOPHIL (%) 4.5 % (0-5); EOSINOPHIL COUNT 0.2 K/uL (0-0.3); HEMATOCRIT 34.2 % (36.0-46.0); IMMATURE GRANULOCYTE (%) 0.2 % (0.0-0.7); INSTRUMENT ABS NEUTROPHIL CT 1.7 K/uL; LYMPHOCYTE COUNT 2.2 K/uL (1.0-2.8); MCH 29.2 PG (29.0-34.0); MCHC 32.5 G/DL (30.0-36.0); MEAN PLAT.VOLUME 10.7 uM^3 (9.5-12.4); MONOCYTE (%) 6.3 % (3-12); MONOCYTE COUNT 0.3 K/uL (0-0.8); NEUTROPHIL (%) 38.8 % (45-76); NEUTROPHIL COUNT 1.7 K/uL (1.8-6.4); PLATELET COUNT 197 K/uL (156-360); RBC DIS.WIDTH-CV 13.1 % (11.8-14.6); RBC DIS.WIDTH-SD 43.1 % (39-53); WHITE BLOOD COUNT 4.4 K/uL (4.1-10.2)
[2017-05-10 06:12] LABS: ANION GAP 8 MEQ/L (2-14); CHLORIDE 106 MEQ/L (99-109); GFR ESTIMATE (CALCULATED) > 59 mL/min/; GLUCOSE 96 mg/dL (70-99); POTASSIUM 3.9 MEQ/L (3.7-5.4); SAMPLE HEMOLYSIS CHECK 0; SAMPLE ICTERIC CHECK 0; SAMPLE LIPEMIA CHECK 0; SODIUM 142 MEQ/L (136-147); UREA NITROGEN (BUN) 5 mg/dL (9-23)
[2017-05-10 08:09] VITALS: BP 132/79
[2017-05-10 11:29] VITALS: BP 151/78
[2017-05-10 15:15] VITALS: BP 140/77
[2017-05-10 15:17] VITALS: BP 101/55
[2017-05-10 19:42] VITALS: BP 117/75
[2017-05-10] MEDS ORDERED: BENTYL20 MG PO (20:31)
[2017-05-10] MEDS ORDERED: PANTOPRAZOLE SO40 MG PO (20:32)
[2017-05-10] MEDS ORDERED: ONDANSETRON ODT4 MG PO (20:32)
[2017-05-10] MEDS ORDERED: SUCRALFATE1 GM PO (20:32)
== END 2017-05-10 22:10 | disposition home or self-care (01) ==
LOC: EME 23:56 → EDOF 05-08 04:37 → 5WEST 05-08 04:37 → EDOF 05-08 04:37 → ENRESERV 05-08 04:39 → 5WEST 05-08 12:29
PROVIDERS: Hospitalist; Internal Medicine
DX: R00.2 Palpitations (principal); D68.9 Coagulation defect, unspecified; R07.89 Other chest pain; R94.31 Abnormal electrocardiogram [ECG] [EKG]; Z98.890 Other specified postprocedural states; I10 Essential (primary) hypertension; K21.9 Gastro-esophageal reflux disease without esophagitis; H81.10 Benign paroxysmal vertigo, unspecified ear; E03.9 Hypothyroidism, unspecified; E87.6 Hypokalemia; Z87.01 Personal history of pneumonia (recurrent); D64.9 Anemia, unspecified; Z90.49 Acquired absence of other specified parts of digestive tract; Z90.710 Acquired absence of both cervix and uterus; Z88.5 Allergy status to narcotic agent; Z91.09 Other allergy status, other than to drugs and biological substances
CPT/HCPCS: 71020; 71250; 74176; 78582; 80048; 80076; 82607; 82728; 82746; 83540; 83605; 83690; 84466; 84484; 85025; 85027; 85379; 85610; 85651; 86140; 93005; 99202; A9540; A9567; G0378; J1650; J2405; J2765; J3010; J7120; S0028

== ENCOUNTER 2017-05-23 19:09 | Emergency (ER) | payer OTHER ==
[~2017-05-23] VITALS: Ht 170.2 cm; Wt 88.6 kg
[~2017-05-23 19:09] MED LIST changes: +ONDANSETRON ODT4 MG PO; +PANTOPRAZOLE SO40 MG PO
[2017-05-23 20:17] LABS: HEMATOCRIT 36.4 % (36.0-46.0); MCH 28.9 PG (29.0-34.0); MCV 87.7 FL (83-99); PLATELET COUNT 243 K/uL (156-360); RBC DIS.WIDTH-CV 12.8 % (11.8-14.6); RBC DIS.WIDTH-SD 41.1 % (39-53); RED BLOOD COUNT 4.15 M/uL (3.80-5.20)
[2017-05-23 20:25] LABS: CHLORIDE 106 mEq/L (99-109); POTASSIUM 3.6 mEq/L (3.7-5.4); SODIUM 139 mEq/L (136-147)
[2017-05-23 20:26] LABS: GLUCOSE 121 mg/dL (70-99)
[2017-05-23 20:30] LABS: CREATININE 0.9 mg/dL (0.6-1.3); GFR ESTIMATE (CALCULATED) > 59 mL/min/
[2017-05-23 20:31] LABS: UREA NITROGEN (BUN) 6 mg/dL (9-23)
[2017-05-23 21:52] LABS: THYROTROPIN (TSH) 0.23 MIU/L (0.4-5.5)
[2017-05-23 22:00] LABS: APPEARANCE CLEAR ((CLEAR)); BILIRUBIN NEGATIVE; BLOOD NEGATIVE; COLOR STRAW ((YELLOW)); GLUCOSE (STRIP) NEGATIVE; KETONES NEGATIVE; LEUKOCYTES NEGATIVE; NITRITE NEGATIVE; PROTEIN (STRIP) NEGATIVE; SPECIFIC GRAVITY 1.006 (1.000-1.030); UROBILINOGEN 0.2 MG/DL (0.2-1.0)
[2017-05-24] MEDS ORDERED: LEVOTHYROXINE88 MCG PO (00:46)
[2017-05-24 01:05] VITALS: BP 133/90
== END 2017-05-24 01:06 | disposition home or self-care (01) ==
LOC: EME 19:09
PROVIDERS: Physician Assistant
DX: I95.1 Orthostatic hypotension (principal); E03.9 Hypothyroidism, unspecified; E86.0 Dehydration; N89.8 Other specified noninflammatory disorders of vagina; R05 Cough; R63.4 Abnormal weight loss; Z68.30 Body mass index [BMI] 30.0-30.9, adult; Z98.890 Other specified postprocedural states; Z90.710 Acquired absence of both cervix and uterus; Z79.890 Hormone replacement therapy
CPT/HCPCS: 71046; 80048; 81003; 84443; 85027; 93005; 99281; 99285; J7030; J7050

== ENCOUNTER 2017-06-14 11:01 | Emergency (ER) | payer OTHER ==
[~2017-06-14] VITALS: Ht 170.2 cm; Wt 88.4 kg
[~2017-06-14 11:01] MED LIST changes: +LEVOTHYROXINE88 MCG PO
[2017-06-14 12:32] LABS: BASOPHIL (%) 0.7 % (0-1); BASOPHIL COUNT 0.1 K/uL (0-0.1); EOSINOPHIL (%) 1.6 % (0-5); EOSINOPHIL COUNT 0.1 K/uL (0-0.3); HEMOGLOBIN 12.5 G/DL (11.9-15.5); IMMATURE GRANULOCYTE (%) 0.1 % (0.0-0.7); LYMPHOCYTE (%) 27.4 % (15-42); LYMPHOCYTE COUNT 1.8 K/uL (1.0-2.8); MCH 28.7 PG (29.0-34.0); MCHC 32.9 G/DL (30.0-36.0); MCV 87.2 FL (83-99); MONOCYTE (%) 4.8 % (3-12); MONOCYTE COUNT 0.3 K/uL (0-0.8); NEUTROPHIL (%) 65.4 % (45-76); NEUTROPHIL COUNT 4.4 K/uL (1.8-6.4); PLATELET COUNT 254 K/uL (156-360); RBC DIS.WIDTH-CV 13.3 % (11.8-14.6); RBC DIS.WIDTH-SD 42.5 % (39-53); RED BLOOD COUNT 4.36 M/uL (3.80-5.20); WHITE BLOOD COUNT 6.7 K/uL (4.1-10.2)
[2017-06-14 12:40] LABS: CHLORIDE 106 mEq/L (99-109); POTASSIUM 3.4 mEq/L (3.7-5.4); SODIUM 137 mEq/L (136-147)
[2017-06-14 12:41] LABS: GLUCOSE 111 mg/dL (70-99)
[2017-06-14 12:45] LABS: CREATININE 0.8 mg/dL (0.6-1.3); GFR ESTIMATE (CALCULATED) > 59 mL/min/
[2017-06-14 12:46] LABS: UREA NITROGEN (BUN) 7 mg/dL (9-23)
[2017-06-14 15:38] VITALS: BP 148/86
[2017-06-14] MEDS ORDERED: PEPCID20 MG PO (23:46)
[2017-06-14] MEDS ORDERED: DELTASONE20 M1 PO (23:46)
[2017-06-27] MEDS ORDERED: LEVOTHYROXINE100 MCG PO (10:02)
[2017-06-27] MEDS ORDERED: DHEA25 MG PO (10:03)
[2017-06-30] MEDS ORDERED: PROGESTERONE100 MG PO (12:09)
== END 2017-06-14 15:40 | disposition home or self-care (01) ==
LOC: EME 11:01
PROVIDERS: Emergency Medicine
DX: R61 Generalized hyperhidrosis (principal); T43.215A Adverse effect of selective serotonin and norepinephrine reuptake inhibitors, initial encounter; I10 Essential (primary) hypertension; K21.9 Gastro-esophageal reflux disease without esophagitis; F41.9 Anxiety disorder, unspecified; E03.9 Hypothyroidism, unspecified; Z88.5 Allergy status to narcotic agent; Z88.8 Allergy status to other drugs, medicaments and biological substances
CPT/HCPCS: 71046; 80048; 81003; 85025; 99281; 99284

== ENCOUNTER 2017-06-14 21:15 | Emergency (ER) | payer OTHER ==
[~2017-06-14] VITALS: Ht 170.2 cm; Wt 88.8 kg
[2017-06-14 22:18] LABS: BASOPHIL (%) 0.6 % (0-1); BASOPHIL COUNT 0.1 K/uL (0-0.1); EOSINOPHIL (%) 1.4 % (0-5); EOSINOPHIL COUNT 0.1 K/uL (0-0.3); HEMATOCRIT 36.3 % (36.0-46.0); IMMATURE GRANULOCYTE (%) 0.2 % (0.0-0.7); LYMPHOCYTE (%) 19.2 % (15-42); LYMPHOCYTE COUNT 1.6 K/uL (1.0-2.8); MCH 28.5 PG (29.0-34.0); MCHC 33.1 G/DL (30.0-36.0); MCV 86.2 FL (83-99); MONOCYTE (%) 5.8 % (3-12); MONOCYTE COUNT 0.5 K/uL (0-0.8); NEUTROPHIL (%) 72.8 % (45-76); NEUTROPHIL COUNT 6.1 K/uL (1.8-6.4); PLATELET COUNT 244 K/uL (156-360); RBC DIS.WIDTH-CV 13.3 % (11.8-14.6); RED BLOOD COUNT 4.21 M/uL (3.80-5.20); WHITE BLOOD COUNT 8.3 K/uL (4.1-10.2)
[2017-06-14 22:31] LABS: CHLORIDE 108 mEq/L (99-109); POTASSIUM 3.3 mEq/L (3.7-5.4); SODIUM 139 mEq/L (136-147)
[2017-06-14 22:32] LABS: GLUCOSE 110 mg/dL (70-99)
[2017-06-14 22:36] LABS: CREATININE 0.8 mg/dL (0.6-1.3); GFR ESTIMATE (CALCULATED) > 59 mL/min/
[2017-06-14 22:37] LABS: UREA NITROGEN (BUN) 8 mg/dL (9-23)
[2017-06-14 22:41] LABS: TROP-I INTERPRETATION NEGATIVE; TROPONIN-I < 0.01 ng/mL (0.0-0.30)
[2017-06-14] MEDS ORDERED: DELTASONE20 M1 PO (23:46)
[2017-06-14] MEDS ORDERED: PEPCID20 MG PO (23:46)
[2017-06-15 00:09] VITALS: BP 146/95
== END 2017-06-15 00:10 | disposition home or self-care (01) ==
LOC: EME 21:15
PROVIDERS: Physician Assistant
DX: R21 Rash and other nonspecific skin eruption (principal); T43.215A Adverse effect of selective serotonin and norepinephrine reuptake inhibitors, initial encounter; I10 Essential (primary) hypertension; E03.9 Hypothyroidism, unspecified; K21.9 Gastro-esophageal reflux disease without esophagitis; F41.9 Anxiety disorder, unspecified; Z88.8 Allergy status to other drugs, medicaments and biological substances
CPT/HCPCS: 80048 91; 84484; 85025 91; 93005; 99281; 99285; J1200; J2930; J7030; S0028

== ENCOUNTER 2017-06-15 18:48 | Emergency (ER) | payer OTHER ==
[~2017-06-15] VITALS: Ht 170.2 cm; Wt 89.3 kg
[~2017-06-15 18:48] MED LIST changes: +DELTASONE20 M1 PO; +PEPCID20 MG PO
[2017-06-15 19:08] VITALS: BP 169/110
== END 2017-06-15 23:16 | disposition left against medical advice (07) ==
LOC: EME 18:48
DX: R25.1 Tremor, unspecified (principal); Z53.21 Procedure and treatment not carried out due to patient leaving prior to being seen by health care provider
CPT/HCPCS: 99281

== ENCOUNTER → 2017-06-30 | Outpatient (CLI) | payer BC ==
[~2017-06-30] VITALS: Ht 170.2 cm; Wt 87.5 kg
[~2017-06-30] MED LIST changes: +DHEA25 MG PO
== END | disposition home or self-care (01) ==
LOC: AMB 11:30
PROC: 0DJ08ZZ Inspection of Upper Intestinal Tract, Via Natural or Artificial Opening Endoscopic (ICD-10-PCS; principal; 2017-06-30)
DX: R10.12 Left upper quadrant pain (principal); K31.89 Other diseases of stomach and duodenum; E89.0 Postprocedural hypothyroidism; Z98.890 Other specified postprocedural states; Z90.49 Acquired absence of other specified parts of digestive tract; Z87.19 Personal history of other diseases of the digestive system; Z90.710 Acquired absence of both cervix and uterus; Z90.79 Acquired absence of other genital organ(s); Z90.722 Acquired absence of ovaries, bilateral; G47.33 Obstructive sleep apnea (adult) (pediatric); I10 Essential (primary) hypertension; Z79.890 Hormone replacement therapy; Z88.8 Allergy status to other drugs, medicaments and biological substances
CPT/HCPCS: 84132; J3010

== ENCOUNTER 2017-07-17 19:40 | Emergency (ER) | payer OTHER ==
[~2017-07-17] VITALS: Ht 170.2 cm; Wt 89.3 kg
[~2017-07-17 19:40] MED LIST changes: +CYCLOBENZAPRINE5 MG PO; +GABAPENTIN100 MG PO; +HAIR, SKIN & N1 EAC1 PO; +WELLBUTRIN SR150 MG PO
[2017-07-17 22:06] LABS: HEMATOCRIT 37.6 % (36.0-46.0); HEMOGLOBIN 12.6 G/DL (11.9-15.5); MCH 29.4 PG (29.0-34.0); MCHC 33.5 G/DL (30.0-36.0); MCV 87.9 FL (83-99); PLATELET COUNT 290 K/uL (156-360); RBC DIS.WIDTH-CV 13.8 % (11.8-14.6); RBC DIS.WIDTH-SD 44.5 % (39-53); RED BLOOD COUNT 4.28 M/uL (3.80-5.20)
[2017-07-17 22:30] LABS: CHLORIDE 110 mEq/L (99-109); POTASSIUM 3.9 mEq/L (3.7-5.4); SODIUM 140 mEq/L (136-147)
[2017-07-17 22:31] LABS: GLUCOSE 106 mg/dL (70-99)
[2017-07-17 22:35] LABS: CREATININE 0.8 mg/dL (0.6-1.3); GFR ESTIMATE (CALCULATED) > 59 mL/min/
[2017-07-17 22:36] LABS: UREA NITROGEN (BUN) 6 mg/dL (9-23)
[2017-07-18 01:00] LABS: APPEARANCE CLEAR ((CLEAR)); BILIRUBIN NEGATIVE; BLOOD NEGATIVE; COLOR STRAW ((YELLOW)); GLUCOSE (STRIP) NEGATIVE; KETONES NEGATIVE; LEUKOCYTES NEGATIVE; NITRITE NEGATIVE; PROTEIN (STRIP) NEGATIVE; SPECIFIC GRAVITY 1.006 (1.000-1.030); UROBILINOGEN 0.2 MG/DL (0.2-1.0)
[2017-07-18 06:53] VITALS: BP 113/73
== END 2017-07-18 06:54 | disposition home or self-care (01) ==
LOC: EME 19:40
PROVIDERS: Physician Assistant
DX: E86.0 Dehydration (principal); R11.0 Nausea; K21.9 Gastro-esophageal reflux disease without esophagitis; I10 Essential (primary) hypertension; E03.9 Hypothyroidism, unspecified; F41.9 Anxiety disorder, unspecified; Z90.49 Acquired absence of other specified parts of digestive tract; Z90.710 Acquired absence of both cervix and uterus; Z88.5 Allergy status to narcotic agent; Z91.041 Radiographic dye allergy status; Z88.8 Allergy status to other drugs, medicaments and biological substances
CPT/HCPCS: 80048; 81003; 85027; 93005; 99281; 99285; J0500; J1885; J2405; J7030

== ENCOUNTER → 2017-07-18 | Outpatient (CLI) | payer BC ==
[~2017-07-18] VITALS: Ht 170.2 cm; Wt 85.3 kg
== END | disposition home or self-care (01) ==
LOC: AMB 06:58
PROC: 0DBE8ZX Excision of Large Intestine, Via Natural or Artificial Opening Endoscopic, Diagnostic (ICD-10-PCS; principal; 2017-07-18)
DX: K57.30 Diverticulosis of large intestine without perforation or abscess without bleeding (principal); K62.89 Other specified diseases of anus and rectum; K58.9 Irritable bowel syndrome, unspecified; R10.12 Left upper quadrant pain; E89.0 Postprocedural hypothyroidism; E66.9 Obesity, unspecified; Z68.32 Body mass index [BMI] 32.0-32.9, adult; E53.8 Deficiency of other specified B group vitamins
CPT/HCPCS: 88305; J2250; J3010

== ENCOUNTER 2017-07-31 21:21 | Observation (INO) | payer OTHER ==
[~2017-07-31] VITALS: Ht 170.2 cm; Wt 88.3 kg
[2017-07-31 21:49] LABS: HEMATOCRIT 37.7 % (36.0-46.0); HEMOGLOBIN 12.6 G/DL (11.9-15.5); MCH 29.6 PG (29.0-34.0); MCHC 33.4 G/DL (30.0-36.0); MCV 88.5 FL (83-99); PLATELET COUNT 302 K/uL (156-360); RBC DIS.WIDTH-CV 13.3 % (11.8-14.6); RBC DIS.WIDTH-SD 43.1 % (39-53); RED BLOOD COUNT 4.26 M/uL (3.80-5.20); WHITE BLOOD COUNT 9.7 K/uL (4.1-10.2)
[2017-07-31 22:07] LABS: ALBUMIN 3.9 g/dL (3.2-4.8); CHLORIDE 107 mEq/L (99-109); POTASSIUM 3.6 mEq/L (3.7-5.4); SODIUM 139 mEq/L (136-147)
[2017-07-31 22:09] LABS: GLUCOSE 142 mg/dL (70-99)
[2017-07-31 22:10] LABS: TOTAL PROTEIN 7.3 g/dL (6.4-8.3)
[2017-07-31 22:11] LABS: TOTAL BILIRUBIN 0.6 mg/dL (0.0-1.0)
[2017-07-31 22:13] LABS: ALKALINE PHOSPHATASE 78 IU/L (3-129); CREATININE 0.9 mg/dL (0.6-1.3); GFR ESTIMATE (CALCULATED) > 59 mL/min/
[2017-07-31 22:14] LABS: UREA NITROGEN (BUN) 10 mg/dL (9-23)
[2017-07-31 22:15] LABS: AST (GOT) 15 IU/L (2-34)
[2017-07-31 22:16] LABS: ALT (GPT) 18 IU/L (3-49)
[2017-07-31 22:22] LABS: QUANTITATIVE HCG < 4.0 MIU/ML
[2017-07-31 22:43] LABS: APPEARANCE CLEAR ((CLEAR)); BILIRUBIN NEGATIVE; BLOOD NEGATIVE; COLOR YELLOW ((YELLOW)); GLUCOSE (STRIP) NEGATIVE; KETONES NEGATIVE; LEUKOCYTES NEGATIVE; NITRITE NEGATIVE; PROTEIN (STRIP) NEGATIVE; UCUL ADDED? NO; UROBILINOGEN 0.2 MG/DL (0.2-1.0)
[2017-08-01] MEDS ORDERED: PROTONIX40 MG PO (00:11)
[2017-08-01] MEDS ORDERED: TRAZODONE HCL50 MG PO (00:12)
[2017-08-01 01:56] VITALS: BP 136/88
[2017-08-01 03:57] VITALS: BP 133/88
[2017-08-01 08:02] VITALS: BP 107/66
[2017-08-01 11:52] VITALS: BP 117/73
[2017-08-01] MEDS ORDERED: CIPRO500 MG PO (15:33)
[2017-08-01] MEDS ORDERED: FLAGYL500 MG PO (15:34)
[2017-08-01 15:48] VITALS: BP 149/89
== END 2017-08-01 16:39 | disposition home or self-care (01) ==
LOC: EME 21:21 → EDOF 08-01 00:33 → ENRESERV 08-01 00:35 → 2EAST 08-01 01:50
PROVIDERS: Hospitalist
DX: K57.92 Diverticulitis of intestine, part unspecified, without perforation or abscess without bleeding (principal); G89.29 Other chronic pain; M54.9 Dorsalgia, unspecified; G47.33 Obstructive sleep apnea (adult) (pediatric); K58.9 Irritable bowel syndrome, unspecified; K44.9 Diaphragmatic hernia without obstruction or gangrene; K21.9 Gastro-esophageal reflux disease without esophagitis; F41.9 Anxiety disorder, unspecified; R73.03 Prediabetes; I10 Essential (primary) hypertension; E78.5 Hyperlipidemia, unspecified; E89.0 Postprocedural hypothyroidism; Z79.818 Long term (current) use of other agents affecting estrogen receptors and estrogen levels; Z90.49 Acquired absence of other specified parts of digestive tract; Z90.710 Acquired absence of both cervix and uterus; Z88.5 Allergy status to narcotic agent; Z91.041 Radiographic dye allergy status; Z91.048 Other nonmedicinal substance allergy status; Z83.49 Family history of other endocrine, nutritional and metabolic diseases; Z78.0 Asymptomatic menopausal state
CPT/HCPCS: 71046; 74176; 80053; 81003; 82948; 84702; 85027; 93005; 99281; 99285; G0378; J0744; J1650; J2270; J2405; J3010; J7040; S0030

== ENCOUNTER 2017-08-14 11:11 | Emergency (ER) | payer OTHER ==
[~2017-08-14] VITALS: Ht 170.2 cm; Wt 84.1 kg
[~2017-08-14 11:11] MED LIST changes: +PROTONIX40 MG PO; +TRAZODONE HCL50 MG PO
[2017-08-14 11:53] LABS: HEMATOCRIT 39.7 % (36.0-46.0); HEMOGLOBIN 13.3 G/DL (11.9-15.5); MCH 29.6 PG (29.0-34.0); MCHC 33.5 G/DL (30.0-36.0); MCV 88.2 FL (83-99); PLATELET COUNT 341 K/uL (156-360); RBC DIS.WIDTH-CV 13.1 % (11.8-14.6); RBC DIS.WIDTH-SD 42.8 % (39-53); WHITE BLOOD COUNT 5.7 K/uL (4.1-10.2)
[2017-08-14 12:05] LABS: CHLORIDE 108 mEq/L (99-109); SODIUM 140 mEq/L (136-147)
[2017-08-14 12:07] LABS: GLUCOSE 120 mg/dL (70-99)
[2017-08-14 12:11] LABS: CREATININE 0.9 mg/dL (0.6-1.3); GFR ESTIMATE (CALCULATED) > 59 mL/min/
[2017-08-14 12:12] LABS: UREA NITROGEN (BUN) 12 mg/dL (9-23)
[2017-08-14 12:13] LABS: TROP-I INTERPRETATION NEGATIVE; TROPONIN-I < 0.01 ng/mL (0.0-0.30)
[2017-08-14 14:05] LABS: APPEARANCE CLOUDY ((CLEAR)); BILIRUBIN NEGATIVE; BLOOD NEGATIVE; COLOR YELLOW ((YELLOW)); GLUCOSE (STRIP) NEGATIVE; KETONES NEGATIVE; LEUKOCYTES SMALL; NITRITE NEGATIVE; PROTEIN (STRIP) NEGATIVE; SPECIFIC GRAVITY 1.012 (1.000-1.030); UROBILINOGEN 0.2 MG/DL (0.2-1.0)
[2017-08-14 14:27] LABS: BACTERIA RARE /HPF; EPITHELIAL CELLS 1+ /HPF; HYALINE CASTS 0-5 /LPF; MUCUS TRACE /LPF; WHITE BLOOD CELLS 0-5 /HPF (0-5)
[2017-08-14] MEDS ORDERED: BACTRIM,SEPT1 TABLET PO (14:28)
[2017-08-14] MEDS ORDERED: PERCOCET 5/31 TABLET PO (14:29)
[2017-08-14] MEDS ORDERED: OXYCODONE H5 MG/5 ML PO (14:37)
[2017-08-14] MEDS ORDERED: BACTRIM,SEPTRA S1 ML PO (14:54)
[2017-08-14 15:50] VITALS: BP 137/85
== END 2017-08-14 16:01 | disposition home or self-care (01) ==
LOC: EME 11:11
PROVIDERS: Nurse Practitioner Family
DX: M19.011 Primary osteoarthritis, right shoulder (principal); N39.0 Urinary tract infection, site not specified; R07.9 Chest pain, unspecified; K21.9 Gastro-esophageal reflux disease without esophagitis; I10 Essential (primary) hypertension; E03.9 Hypothyroidism, unspecified; F41.9 Anxiety disorder, unspecified; Z90.49 Acquired absence of other specified parts of digestive tract; Z90.710 Acquired absence of both cervix and uterus; Z91.041 Radiographic dye allergy status; Z88.5 Allergy status to narcotic agent; Z88.8 Allergy status to other drugs, medicaments and biological substances
CPT/HCPCS: 71046; 73030; 80048; 81003; 84484; 85027; 93005; 99281; 99285

== ENCOUNTER 2017-08-19 13:24 | Emergency (ER) | payer OTHER ==
[~2017-08-19] VITALS: Ht 170.2 cm; Wt 87.6 kg
[~2017-08-19 13:24] MED LIST changes: +BACTRIM,SEPT1 TABLET PO; +BACTRIM,SEPTRA S1 ML PO; +OXYCODONE H5 MG/5 ML PO; +PERCOCET 5/31 TABLET PO
[2017-08-19 13:46] LABS: HEMATOCRIT 39.7 % (36.0-46.0); HEMOGLOBIN 13.4 G/DL (11.9-15.5); MCHC 33.8 G/DL (30.0-36.0); PLATELET COUNT 303 K/uL (156-360); RBC DIS.WIDTH-CV 12.9 % (11.8-14.6); RBC DIS.WIDTH-SD 42.5 % (39-53); RED BLOOD COUNT 4.46 M/uL (3.80-5.20); WHITE BLOOD COUNT 7.3 K/uL (4.1-10.2)
[2017-08-19 13:58] LABS: ALBUMIN 4.3 g/dL (3.2-4.8); CHLORIDE 108 mEq/L (99-109); POTASSIUM 4.1 mEq/L (3.7-5.4); SODIUM 141 mEq/L (136-147)
[2017-08-19 14:00] LABS: GLUCOSE 103 mg/dL (70-99); TOTAL PROTEIN 7.4 g/dL (6.4-8.3)
[2017-08-19 14:02] LABS: TOTAL BILIRUBIN 0.4 mg/dL (0.0-1.0)
[2017-08-19 14:04] LABS: ALKALINE PHOSPHATASE 63 IU/L (3-129); GFR ESTIMATE (CALCULATED) > 59 mL/min/
[2017-08-19 14:05] LABS: UREA NITROGEN (BUN) 12 mg/dL (9-23)
[2017-08-19 14:06] LABS: AST (GOT) 20 IU/L (2-34)
[2017-08-19 14:07] LABS: ALT (GPT) 21 IU/L (3-49)
[2017-08-19 14:12] LABS: QUANTITATIVE HCG < 4.0 MIU/ML
[2017-08-19 16:45] LABS: APPEARANCE SL.HAZY ((CLEAR)); BILIRUBIN NEGATIVE; BLOOD NEGATIVE; COLOR YELLOW ((YELLOW)); GLUCOSE (STRIP) NEGATIVE; KETONES NEGATIVE; LEUKOCYTES NEGATIVE; NITRITE NEGATIVE; PROTEIN (STRIP) NEGATIVE; SPECIFIC GRAVITY 1.011 (1.000-1.030); UROBILINOGEN 0.2 MG/DL (0.2-1.0)
[2017-08-19 17:00] LABS: BACTERIA NONE SEEN /HPF; EPITHELIAL CELLS 2+ /HPF; MUCUS TRACE /LPF; RED BLOOD CELLS 0-5 /HPF (0-5); UCUL ADDED? NO; WHITE BLOOD CELLS 0-5 /HPF (0-5)
[2017-08-19] MEDS ORDERED: ZOFRAN4 MG PO (17:40)
[2017-08-19] MEDS ORDERED: LEVSIN0.125 MG PO (18:05)
[2017-08-19 18:17] VITALS: BP 168/96
== END 2017-08-19 18:18 | disposition home or self-care (01) ==
LOC: EME 13:24
DX: R10.12 Left upper quadrant pain (principal); Z87.440 Personal history of urinary (tract) infections; K21.9 Gastro-esophageal reflux disease without esophagitis; I10 Essential (primary) hypertension; E03.9 Hypothyroidism, unspecified; F41.9 Anxiety disorder, unspecified; Z90.49 Acquired absence of other specified parts of digestive tract; Z90.710 Acquired absence of both cervix and uterus; Z88.5 Allergy status to narcotic agent; Z91.041 Radiographic dye allergy status; Z88.8 Allergy status to other drugs, medicaments and biological substances
CPT/HCPCS: 71046; 74176; 80053; 81003; 84702; 85027; 99281; 99285; J2405; J7120

== ENCOUNTER 2017-09-08 15:17 | Emergency (ER) | payer OTHER ==
[~2017-09-08] VITALS: Ht 170.2 cm; Wt 90.7 kg
[~2017-09-08 15:17] MED LIST changes: +LEVSIN0.125 MG PO; +ZOFRAN4 MG PO
[2017-09-08 15:38] LABS: HEMATOCRIT 38.3 % (36.0-46.0); MCH 30.3 PG (29.0-34.0); MCHC 33.9 G/DL (30.0-36.0); MCV 89.3 FL (83-99); PLATELET COUNT 294 K/uL (156-360); RBC DIS.WIDTH-CV 12.9 % (11.8-14.6); RBC DIS.WIDTH-SD 42.4 % (39-53); RED BLOOD COUNT 4.29 M/uL (3.80-5.20)
[2017-09-08 15:48] LABS: CHLORIDE 105 mEq/L (99-109); POTASSIUM 3.9 mEq/L (3.7-5.4); SODIUM 139 mEq/L (136-147)
[2017-09-08 15:50] LABS: GLUCOSE 103 mg/dL (70-99)
[2017-09-08 15:54] LABS: CREATININE 0.8 mg/dL (0.6-1.3); GFR ESTIMATE (CALCULATED) > 59 mL/min/
[2017-09-08 15:55] LABS: UREA NITROGEN (BUN) 12 mg/dL (9-23)
[2017-09-08 15:58] LABS: TROP-I INTERPRETATION NEGATIVE; TROPONIN-I < 0.01 ng/mL (0.0-0.30)
[2017-09-08 16:37] LABS: APPEARANCE CLOUDY ((CLEAR)); BILIRUBIN NEGATIVE; BLOOD NEGATIVE; COLOR YELLOW ((YELLOW)); GLUCOSE (STRIP) NEGATIVE; KETONES NEGATIVE; LEUKOCYTES NEGATIVE; NITRITE NEGATIVE; PROTEIN (STRIP) NEGATIVE; UROBILINOGEN 0.2 MG/DL (0.2-1.0)
[2017-09-08 16:48] LABS: BACTERIA NONE SEEN /HPF; EPITHELIAL CELLS 2+ /HPF; HYALINE CASTS 0-5 /LPF; MUCUS TRACE /LPF; RED BLOOD CELLS 0-5 /HPF (0-5); WHITE BLOOD CELLS 0-5 /HPF (0-5)
[2017-09-08 16:59] LABS: TROP-I INTERPRETATION NEGATIVE; TROPONIN-I < 0.01 ng/mL (0.0-0.30)
[2017-09-08 17:20] LABS: THYROTROPIN (TSH) 4.1 MIU/L (0.4-5.5)
[2017-09-08 18:50] LABS: ALBUMIN 4.1 G/DL (3.2-4.8); DIRECT BILIRUBIN 0.1 mg/dL (0.0-0.3); TOTAL BILIRUBIN 0.4 MG/DL (0.0-1.0)
[2017-09-08 18:55] LABS: ALKALINE PHOSPHATASE 62 IU/L (3-129); ALT (GPT) 17 IU/L (3-49); AST (GOT) 18 IU/L (2-34); LIPASE 5 U/L (1.0-51.0); TOTAL PROTEIN 7.3 G/DL (6.4-8.3)
[2017-09-08 19:22] LABS: TROP-I INTERPRETATION NEGATIVE
[2017-09-08 19:23] LABS: TROPONIN-I < 0.01 ng/mL (0.0-0.30)
[2017-09-08] MEDS ORDERED: FLAGYL500 MG PO (19:39)
[2017-09-08] MEDS ORDERED: CIPRO500 MG PO (19:39)
[2017-09-08 20:01] VITALS: BP 141/98
[2017-09-09] MEDS ORDERED: PEPCID40 MG PO (18:11)
== END 2017-09-08 20:12 | disposition home or self-care (01) ==
LOC: EME 15:17
PROVIDERS: Physician Assistant
DX: R10.9 Unspecified abdominal pain (principal); K21.9 Gastro-esophageal reflux disease without esophagitis; I10 Essential (primary) hypertension; E03.9 Hypothyroidism, unspecified; F41.9 Anxiety disorder, unspecified; Z90.49 Acquired absence of other specified parts of digestive tract; Z90.710 Acquired absence of both cervix and uterus; Z91.041 Radiographic dye allergy status; Z88.5 Allergy status to narcotic agent; Z88.8 Allergy status to other drugs, medicaments and biological substances
CPT/HCPCS: 71046; 74018; 80048; 80076; 81003; 83690; 84443; 84484; 85027; 85379; 86850; 86900; 86901; 93005; 93975; 99281; 99285; J1200; J2405; J3010; J7030

== ENCOUNTER 2017-09-09 16:33 | Emergency (ER) | payer OTHER ==
[~2017-09-09] VITALS: Ht 170.2 cm; Wt 92.8 kg
[2017-09-09] MEDS ORDERED: PEPCID40 MG PO (18:11)
[2017-09-09 18:15] LABS: HEMATOCRIT 36.4 % (36.0-46.0); HEMOGLOBIN 12.2 G/DL (11.9-15.5); MCH 29.9 PG (29.0-34.0); MCHC 33.5 G/DL (30.0-36.0); MCV 89.2 FL (83-99); PLATELET COUNT 280 K/uL (156-360); RBC DIS.WIDTH-SD 42.9 % (39-53); RED BLOOD COUNT 4.08 M/uL (3.80-5.20); WHITE BLOOD COUNT 7.5 K/uL (4.1-10.2)
[2017-09-09 18:23] LABS: ALBUMIN 3.8 g/dL (3.2-4.8); CHLORIDE 108 mEq/L (99-109); POTASSIUM 4.2 mEq/L (3.7-5.4); SODIUM 140 mEq/L (136-147)
[2017-09-09 18:25] LABS: GLUCOSE 96 mg/dL (70-99); TOTAL PROTEIN 6.5 g/dL (6.4-8.3)
[2017-09-09 18:27] LABS: TOTAL BILIRUBIN 0.3 mg/dL (0.0-1.0)
[2017-09-09 18:29] LABS: ALKALINE PHOSPHATASE 67 IU/L (3-129); CREATININE 0.8 mg/dL (0.6-1.3); GFR ESTIMATE (CALCULATED) > 59 mL/min/
[2017-09-09 18:30] LABS: AST (GOT) 15 IU/L (2-34); UREA NITROGEN (BUN) 11 mg/dL (9-23)
[2017-09-09 18:32] LABS: ALT (GPT) 16 IU/L (3-49); LIPASE 6 U/L (1.0-51.0)
[2017-09-09 18:35] LABS: TROP-I INTERPRETATION NEGATIVE; TROPONIN-I < 0.01 ng/mL (0.0-0.30)
[2017-09-09 18:38] LABS: QUANTITATIVE HCG < 4.0 MIU/ML
[2017-09-09 20:47] VITALS: BP 120/87
[2017-09-10 11:55] LABS: STOOL OCCULT BLD 1ST SPECIMEN NEGATIVE
== END 2017-09-09 20:58 | disposition home or self-care (01) ==
LOC: EME 16:33
PROVIDERS: Emergency Medicine Emergency Medical Services
DX: K57.30 Diverticulosis of large intestine without perforation or abscess without bleeding (principal); K29.70 Gastritis, unspecified, without bleeding; K21.9 Gastro-esophageal reflux disease without esophagitis; I10 Essential (primary) hypertension; F41.9 Anxiety disorder, unspecified; E03.9 Hypothyroidism, unspecified; Z88.5 Allergy status to narcotic agent; Z88.8 Allergy status to other drugs, medicaments and biological substances
CPT/HCPCS: 74176; 80053; 82272; 83690; 84484; 84702; 85027; 99281; 99284

== ENCOUNTER 2017-09-13 14:11 | Emergency (ER) | payer OTHER ==
[~2017-09-13] VITALS: Ht 170.2 cm; Wt 90.9 kg
[~2017-09-13 14:11] MED LIST changes: +PEPCID40 MG PO
[2017-09-13 14:42] LABS: HEMATOCRIT 38.9 % (36.0-46.0); HEMOGLOBIN 13.1 G/DL (11.9-15.5); MCH 29.9 PG (29.0-34.0); MCHC 33.7 G/DL (30.0-36.0); MCV 88.8 FL (83-99); PLATELET COUNT 309 K/uL (156-360); RBC DIS.WIDTH-CV 12.9 % (11.8-14.6); RBC DIS.WIDTH-SD 42.4 % (39-53); RED BLOOD COUNT 4.38 M/uL (3.80-5.20); WHITE BLOOD COUNT 7.2 K/uL (4.1-10.2)
[2017-09-13 14:51] LABS: CHLORIDE 106 mEq/L (99-109); POTASSIUM 3.9 mEq/L (3.7-5.4); SODIUM 138 mEq/L (136-147)
[2017-09-13 14:53] LABS: GLUCOSE 122 mg/dL (70-99)
[2017-09-13 14:57] LABS: CREATININE 0.9 mg/dL (0.6-1.3); GFR ESTIMATE (CALCULATED) > 59 mL/min/; UREA NITROGEN (BUN) 14 mg/dL (9-23)
[2017-09-13 15:46] LABS: BILIRUBIN NEGATIVE; BLOOD NEGATIVE; COLOR YELLOW ((YELLOW)); GLUCOSE (STRIP) NEGATIVE; KETONES NEGATIVE; LEUKOCYTES NEGATIVE; NITRITE NEGATIVE; PROTEIN (STRIP) NEGATIVE; SPECIFIC GRAVITY 1.005 (1.000-1.030); UROBILINOGEN 0.2 MG/DL (0.2-1.0)
[2017-09-13 15:49] LABS: APPEARANCE CLEAR ((CLEAR)); UCUL ADDED? NO
[2017-09-13 15:52] LABS: TROP-I INTERPRETATION NEGATIVE; TROPONIN-I < 0.01 ng/mL (0.0-0.30)
[2017-09-13 18:14] VITALS: BP 128/72
== END 2017-09-13 18:15 | disposition home or self-care (01) ==
LOC: EME 14:11
PROVIDERS: Emergency Medicine
DX: R55 Syncope and collapse (principal); R07.9 Chest pain, unspecified; R19.7 Diarrhea, unspecified; I10 Essential (primary) hypertension; G43.909 Migraine, unspecified, not intractable, without status migrainosus; K21.9 Gastro-esophageal reflux disease without esophagitis; F41.9 Anxiety disorder, unspecified; E03.9 Hypothyroidism, unspecified; Z88.5 Allergy status to narcotic agent; Z91.041 Radiographic dye allergy status; Z90.710 Acquired absence of both cervix and uterus
CPT/HCPCS: 80048; 81003; 84484; 85027; 87493; 93005; 99281; 99285; J7030

== ENCOUNTER 2017-10-05 14:45 | Inpatient (IN) | payer OTHER ==
[~2017-10-05] VITALS: Ht 170.2 cm; Wt 93.7 kg
[~2017-10-05 14:45] MED LIST changes: +DHEA 10 MG TAB1 EACH PO; -DHEA25 MG PO; +VITAMIN D33000 UNIT PO; -VITAMIN D35000 UNIT PO
[2017-10-05 16:46] LABS: BASOPHIL (%) 0.5 % (0-1); BASOPHIL COUNT 0.1 K/uL (0-0.1); EOSINOPHIL (%) 0.5 % (0-5); EOSINOPHIL COUNT 0.1 K/uL (0-0.3); HEMATOCRIT 38.6 % (36.0-46.0); HEMOGLOBIN 13.1 G/DL (11.9-15.5); IMMATURE GRANULOCYTE (%) 0.2 % (0.0-0.7); LYMPHOCYTE (%) 17.5 % (15-42); LYMPHOCYTE COUNT 1.6 K/uL (1.0-2.8); MCH 29.9 PG (29.0-34.0); MCHC 33.9 G/DL (30.0-36.0); MCV 88.1 FL (83-99); MONOCYTE (%) 3.5 % (3-12); MONOCYTE COUNT 0.3 K/uL (0-0.8); NEUTROPHIL (%) 77.8 % (45-76); NEUTROPHIL COUNT 7.3 K/uL (1.8-6.4); PLATELET COUNT 264 K/uL (156-360); RBC DIS.WIDTH-CV 12.7 % (11.8-14.6); RBC DIS.WIDTH-SD 41.2 % (39-53); RED BLOOD COUNT 4.38 M/uL (3.80-5.20); WHITE BLOOD COUNT 9.4 K/uL (4.1-10.2)
[2017-10-05 16:55] LABS: ALBUMIN 4.2 g/dL (3.2-4.8); CHLORIDE 106 mEq/L (99-109); POTASSIUM 4.3 mEq/L (3.7-5.4); SODIUM 139 mEq/L (136-147)
[2017-10-05 16:57] LABS: GLUCOSE 107 mg/dL (70-99); TOTAL PROTEIN 7.2 g/dL (6.4-8.3)
[2017-10-05 16:59] LABS: TOTAL BILIRUBIN 0.5 mg/dL (0.0-1.0)
[2017-10-05 17:01] LABS: ALKALINE PHOSPHATASE 67 IU/L (3-129); GFR ESTIMATE (CALCULATED) > 59 mL/min/
[2017-10-05 17:02] LABS: UREA NITROGEN (BUN) 15 mg/dL (9-23)
[2017-10-05 17:03] LABS: AST (GOT) 16 IU/L (2-34)
[2017-10-05 17:04] LABS: ALT (GPT) 17 IU/L (3-49); LIPASE 10 U/L (1.0-51.0)
[2017-10-05 17:10] LABS: TROP-I INTERPRETATION NEGATIVE; TROPONIN-I < 0.01 ng/mL (0.0-0.30)
[2017-10-05 18:05] LABS: THYROTROPIN (TSH) 1.1 MIU/L (0.4-5.5)
[2017-10-05 20:25] LABS: TROP-I INTERPRETATION NEGATIVE; TROPONIN-I < 0.01 ng/mL (0.0-0.30)
[2017-10-05] MEDS ORDERED: CYCLOBENZAPRINE5 MG PO (22:08)
[2017-10-05] MEDS ORDERED: LEVOTHYROXINE112 MCG PO (22:10)
[2017-10-05] MEDS ORDERED: BENTYL10 MG PO (22:10)
[2017-10-06] VITALS (7 sets, daily range): BP systolic 110–140; BP diastolic 59–82
[2017-10-06 06:19] LABS: HEMATOCRIT 37.7 % (36.0-46.0); HEMOGLOBIN 12.2 G/DL (11.9-15.5); MCH 28.6 PG (29.0-34.0); MCHC 32.4 G/DL (30.0-36.0); MCV 88.5 FL (83-99); PLATELET COUNT 272 K/uL (156-360); RBC DIS.WIDTH-SD 42.2 % (39-53); RED BLOOD COUNT 4.26 M/uL (3.80-5.20); WHITE BLOOD COUNT 8.1 K/uL (4.1-10.2)
[2017-10-07 03:36] VITALS: BP 105/54
[2017-10-07 08:17] VITALS: BP 123/78
[2017-10-07 11:48] VITALS: BP 114/64
[2017-10-07] MEDS ORDERED: ELIQUIS5 MG PO ×2 (12:28→12:30)
== END 2017-10-07 15:06 | disposition home or self-care (01) | DRG 176 ==
LOC: EME 14:45 → EDOF 23:34 → 3EAST 23:34 → ENRESERV 23:40 → 3EAST 10-06 01:16
PROVIDERS: Emergency Medicine; Hospitalist
DX: I26.99 Other pulmonary embolism without acute cor pulmonale (principal); E11.9 Type 2 diabetes mellitus without complications; E78.5 Hyperlipidemia, unspecified; G47.33 Obstructive sleep apnea (adult) (pediatric); E89.0 Postprocedural hypothyroidism; I10 Essential (primary) hypertension; F41.9 Anxiety disorder, unspecified; K21.9 Gastro-esophageal reflux disease without esophagitis; G43.909 Migraine, unspecified, not intractable, without status migrainosus; E66.9 Obesity, unspecified; Z68.32 Body mass index [BMI] 32.0-32.9, adult; Z79.890 Hormone replacement therapy; Z91.041 Radiographic dye allergy status
CPT/HCPCS: 71250; 71275; 74176; 80053; 83690; 84443; 84484; 85025; 85027; 85379; 85730; 93005; 93970; 99281; 99285; C9113; J1170; J1200; J2405; J2930; J7030; J7050

== ENCOUNTER 2017-10-07 21:29 | Emergency (ER) | payer OTHER ==
[~2017-10-07] VITALS: Ht 170.2 cm; Wt 90.9 kg
[~2017-10-07 21:29] MED LIST changes: +BENTYL10 MG PO; +ELIQUIS5 MG PO
[2017-10-07 22:28] LABS: HEMATOCRIT 39.1 % (36.0-46.0); HEMOGLOBIN 13.1 G/DL (11.9-15.5); MCH 29.8 PG (29.0-34.0); MCHC 33.5 G/DL (30.0-36.0); MCV 89.1 FL (83-99); PLATELET COUNT 261 K/uL (156-360); RBC DIS.WIDTH-CV 12.7 % (11.8-14.6); RBC DIS.WIDTH-SD 41.7 % (39-53); RED BLOOD COUNT 4.39 M/uL (3.80-5.20); WHITE BLOOD COUNT 9.7 K/uL (4.1-10.2)
[2017-10-07 22:37] LABS: INTER. NORMALIZED RATIO 1.7
[2017-10-07 22:40] LABS: ALBUMIN 4.1 g/dL (3.2-4.8); CHLORIDE 105 mEq/L (99-109); SODIUM 140 mEq/L (136-147)
[2017-10-07 22:42] LABS: GLUCOSE 94 mg/dL (70-99); PTT 31.3 SEC (25-37); TOTAL PROTEIN 7.2 g/dL (6.4-8.3)
[2017-10-07 22:44] LABS: POTASSIUM 3.4 mEq/L (3.7-5.4); TOTAL BILIRUBIN 0.4 mg/dL (0.0-1.0)
[2017-10-07 22:46] LABS: ALKALINE PHOSPHATASE 69 IU/L (3-129); GFR ESTIMATE (CALCULATED) > 59 mL/min/
[2017-10-07 22:47] LABS: UREA NITROGEN (BUN) 17 mg/dL (9-23)
[2017-10-07 22:48] LABS: AST (GOT) 16 IU/L (2-34)
[2017-10-07 22:49] LABS: ALT (GPT) 20 IU/L (3-49)
[2017-10-07 22:51] LABS: TROP-I INTERPRETATION NEGATIVE; TROPONIN-I < 0.01 ng/mL (0.0-0.30)
[2017-10-07 23:30] VITALS: BP 120/85
[2017-10-08 00:54] LABS: TROP-I INTERPRETATION NEGATIVE; TROPONIN-I < 0.01 ng/mL (0.0-0.30)
== END 2017-10-08 01:26 | disposition home or self-care (01) ==
LOC: EME 21:29 → EXP 21:29
PROVIDERS: Physician Assistant
DX: R07.89 Other chest pain (principal); K59.00 Constipation, unspecified; R00.0 Tachycardia, unspecified; R94.31 Abnormal electrocardiogram [ECG] [EKG]; J98.11 Atelectasis; I10 Essential (primary) hypertension; K21.9 Gastro-esophageal reflux disease without esophagitis; E03.9 Hypothyroidism, unspecified; F41.9 Anxiety disorder, unspecified; Z87.19 Personal history of other diseases of the digestive system; Z90.49 Acquired absence of other specified parts of digestive tract; Z90.710 Acquired absence of both cervix and uterus; Z98.890 Other specified postprocedural states; Z88.5 Allergy status to narcotic agent; Z91.041 Radiographic dye allergy status; Z88.8 Allergy status to other drugs, medicaments and biological substances
CPT/HCPCS: 71046; 80053; 84484; 85027; 85610; 85730; 93005; 99281; 99285; J1885; J2060; J7120; S0028

== ENCOUNTER 2017-10-10 20:35 | Observation (INO) | payer OTHER ==
[~2017-10-10] VITALS: Ht 170.2 cm; Wt 89.2 kg
[2017-10-10 20:59] LABS: HEMATOCRIT 36.2 % (36.0-46.0); HEMOGLOBIN 12.4 G/DL (11.9-15.5); MCHC 34.3 G/DL (30.0-36.0); MCV 87.7 FL (83-99); PLATELET COUNT 272 K/uL (156-360); RBC DIS.WIDTH-CV 12.7 % (11.8-14.6); RBC DIS.WIDTH-SD 40.6 % (39-53); RED BLOOD COUNT 4.13 M/uL (3.80-5.20); WHITE BLOOD COUNT 11.2 K/uL (4.1-10.2)
[2017-10-10 21:07] LABS: CHLORIDE 105 mEq/L (99-109); POTASSIUM 3.9 mEq/L (3.7-5.4); SODIUM 138 mEq/L (136-147)
[2017-10-10 21:08] LABS: GLUCOSE 112 mg/dL (70-99)
[2017-10-10 21:12] LABS: GFR ESTIMATE (CALCULATED) > 59 mL/min/
[2017-10-10 21:13] LABS: UREA NITROGEN (BUN) 13 mg/dL (9-23)
[2017-10-10 21:20] LABS: TROP-I INTERPRETATION NEGATIVE; TROPONIN-I 0.02 ng/mL (0.0-0.30)
[2017-10-10 22:20] LABS: INTER. NORMALIZED RATIO 1.3
[2017-10-10 22:22] LABS: PTT 31.6 SEC (25-37)
[2017-10-10] MEDS ORDERED: PEPCID40 MG PO (22:29)
[2017-10-10] MEDS ORDERED: LEVSIN0.125 MG PO (22:30)
[2017-10-11 01:13] VITALS: BP 136/74
[2017-10-11 04:40] VITALS: BP 152/70
[2017-10-11 07:20] VITALS: BP 117/65
[2017-10-11 09:57] LABS: TROP-I INTERPRETATION NEGATIVE; TROPONIN-I < 0.01 ng/mL (0.0-0.30)
[2017-10-11 10:05] LABS: HDL CHOLESTEROL 47 MG/DL (Desirable>=50); LDL CHOLESTEROL 91 mg/dL (Desirable<100); NON-HDL CHOLESTEROL 105 mg/dL (Desirable<160); TOTAL CHOLESTEROL 152 mg/dL (Desirable<200); TRIGLYCERIDES 68 MG/DL (Normal: <150)
[2017-10-11 12:15] VITALS: BP 126/68
== END 2017-10-11 14:04 | disposition home or self-care (01) ==
LOC: RME 20:35 → EME 20:35 → EDOF 23:12 → ENRESERV 23:15 → ENPENDDIS 10-11 → 4SOUTH 10-11 01:05
PROVIDERS: Physician Assistant; Physician Assistant Medical
DX: R07.89 Other chest pain (principal); R00.2 Palpitations; I27.82 Chronic pulmonary embolism; G47.33 Obstructive sleep apnea (adult) (pediatric); K58.9 Irritable bowel syndrome, unspecified; K44.9 Diaphragmatic hernia without obstruction or gangrene; K21.9 Gastro-esophageal reflux disease without esophagitis; E78.5 Hyperlipidemia, unspecified; F41.9 Anxiety disorder, unspecified; I10 Essential (primary) hypertension; Z88.5 Allergy status to narcotic agent; Z79.01 Long term (current) use of anticoagulants; N95.1 Menopausal and female climacteric states; R00.0 Tachycardia, unspecified; E05.00 Thyrotoxicosis with diffuse goiter without thyrotoxic crisis or storm
CPT/HCPCS: 71046; 80048; 80061; 84484; 85027; 85610; 85730; 93005; G0378; J2060

== ENCOUNTER 2017-10-20 16:39 | Emergency (ER) | payer OTHER ==
[~2017-10-20] VITALS: Ht 170.2 cm; Wt 98.1 kg
[2017-10-20 17:26] LABS: BASOPHIL (%) 0.5 % (0-1); EOSINOPHIL (%) 1.4 % (0-5); EOSINOPHIL COUNT 0.1 K/uL (0-0.3); HEMATOCRIT 37.4 % (36.0-46.0); HEMOGLOBIN 12.7 G/DL (11.9-15.5); IMMATURE GRANULOCYTE (%) 0.3 % (0.0-0.7); LYMPHOCYTE (%) 36.1 % (15-42); LYMPHOCYTE COUNT 2.8 K/uL (1.0-2.8); MCH 29.9 PG (29.0-34.0); MONOCYTE (%) 5.7 % (3-12); MONOCYTE COUNT 0.4 K/uL (0-0.8); NEUTROPHIL COUNT 4.3 K/uL (1.8-6.4); PLATELET COUNT 327 K/uL (156-360); RBC DIS.WIDTH-CV 12.6 % (11.8-14.6); RBC DIS.WIDTH-SD 40.5 % (39-53); RED BLOOD COUNT 4.25 M/uL (3.80-5.20); WHITE BLOOD COUNT 7.6 K/uL (4.1-10.2)
[2017-10-20 17:38] LABS: INTER. NORMALIZED RATIO 1.1
[2017-10-20 17:40] LABS: ALBUMIN 3.9 g/dL (3.2-4.8)
[2017-10-20 17:41] LABS: CHLORIDE 109 mEq/L (99-109); POTASSIUM 4.3 mEq/L (3.7-5.4); PTT 31.6 SEC (25-37); SODIUM 139 mEq/L (136-147)
[2017-10-20 17:43] LABS: GLUCOSE 100 mg/dL (70-99); TOTAL PROTEIN 6.9 g/dL (6.4-8.3)
[2017-10-20 17:45] LABS: TOTAL BILIRUBIN 0.1 mg/dL (0.0-1.0)
[2017-10-20 17:46] LABS: ALKALINE PHOSPHATASE 64 IU/L (3-129)
[2017-10-20 17:47] LABS: CREATININE 0.9 mg/dL (0.6-1.3); GFR ESTIMATE (CALCULATED) > 59 mL/min/
[2017-10-20 17:48] LABS: AST (GOT) 17 IU/L (2-34); UREA NITROGEN (BUN) 17 mg/dL (9-23)
[2017-10-20 17:49] LABS: ALT (GPT) 17 IU/L (3-49)
[2017-10-20 17:51] LABS: TROP-I INTERPRETATION NEGATIVE; TROPONIN-I < 0.01 ng/mL (0.0-0.30)
[2017-10-20 18:21] LABS: APPEARANCE SL.HAZY ((CLEAR)); BILIRUBIN NEGATIVE; BLOOD NEGATIVE; COLOR YELLOW ((YELLOW)); GLUCOSE (STRIP) NEGATIVE; KETONES NEGATIVE; LEUKOCYTES NEGATIVE; NITRITE NEGATIVE; PROTEIN (STRIP) NEGATIVE; SPECIFIC GRAVITY 1.009 (1.000-1.030); UROBILINOGEN 0.2 MG/DL (0.2-1.0)
[2017-10-20 18:23] LABS: BACTERIA NONE SEEN /HPF; EPITHELIAL CELLS 1+ /HPF; MUCUS TRACE /LPF; RED BLOOD CELLS NONE SEEN /HPF (0-5); UCUL ADDED? NO; WHITE BLOOD CELLS 0-5 /HPF (0-5)
[2017-10-20 19:01] LABS: THYROTROPIN (TSH) 0.25 MIU/L (0.4-5.5)
[2017-10-20 21:30] VITALS: BP 136/96
== END 2017-10-20 21:49 | disposition home or self-care (01) ==
LOC: EME 16:39
PROVIDERS: Emergency Medicine
DX: R06.02 Shortness of breath (principal); Z86.711 Personal history of pulmonary embolism; Z79.01 Long term (current) use of anticoagulants; I10 Essential (primary) hypertension; Z86.73 Personal history of transient ischemic attack (TIA), and cerebral infarction without residual deficits; E03.9 Hypothyroidism, unspecified; Z90.710 Acquired absence of both cervix and uterus; K21.9 Gastro-esophageal reflux disease without esophagitis; F41.9 Anxiety disorder, unspecified; Z88.5 Allergy status to narcotic agent
CPT/HCPCS: 71046; 71275; 80053; 81003; 81025; 84439; 84443; 84484; 85025; 85610; 85730; 93005; 99281; 99285; J1200; J2930; J7030

== ENCOUNTER 2017-10-22 22:13 | Emergency (ER) | payer OTHER ==
[~2017-10-22] VITALS: Ht 170.2 cm; Wt 94.4 kg
[2017-10-22 22:35] LABS: HEMATOCRIT 37.1 % (36.0-46.0); HEMOGLOBIN 12.7 G/DL (11.9-15.5); MCH 30.5 PG (29.0-34.0); MCHC 34.2 G/DL (30.0-36.0); PLATELET COUNT 313 K/uL (156-360); RBC DIS.WIDTH-CV 12.8 % (11.8-14.6); RBC DIS.WIDTH-SD 41.6 % (39-53); RED BLOOD COUNT 4.17 M/uL (3.80-5.20)
[2017-10-22 22:44] LABS: ALBUMIN 3.8 g/dL (3.2-4.8); CHLORIDE 106 mEq/L (99-109); POTASSIUM 3.8 mEq/L (3.7-5.4); SODIUM 139 mEq/L (136-147)
[2017-10-22 22:47] LABS: GLUCOSE 103 mg/dL (70-99); TOTAL PROTEIN 6.8 g/dL (6.4-8.3)
[2017-10-22 22:50] LABS: ALKALINE PHOSPHATASE 67 IU/L (3-129); CREATININE 0.9 mg/dL (0.6-1.3); GFR ESTIMATE (CALCULATED) > 59 mL/min/; TOTAL BILIRUBIN 0.2 mg/dL (0.0-1.0)
[2017-10-22 22:51] LABS: UREA NITROGEN (BUN) 16 mg/dL (9-23)
[2017-10-22 22:52] LABS: AST (GOT) 13 IU/L (2-34)
[2017-10-22 22:53] LABS: ALT (GPT) 17 IU/L (3-49)
[2017-10-22 22:54] LABS: LIPASE 11 U/L (1.0-51.0)
[2017-10-22 22:57] LABS: TROP-I INTERPRETATION NEGATIVE; TROPONIN-I < 0.01 ng/mL (0.0-0.30)
[2017-10-22 23:08] LABS: INTER. NORMALIZED RATIO 1.3
[2017-10-22 23:11] LABS: PTT 31.2 SEC (25-37)
[2017-10-23] MEDS ORDERED: XANAX0.25 MG PO (01:17)
[2017-10-23 01:46] VITALS: BP 102/72
== END 2017-10-23 01:58 | disposition home or self-care (01) ==
LOC: EME 22:13
PROVIDERS: Emergency Medicine
DX: F41.1 Generalized anxiety disorder (principal); R10.13 Epigastric pain; R07.89 Other chest pain; R06.02 Shortness of breath; R55 Syncope and collapse; E03.9 Hypothyroidism, unspecified; Z86.711 Personal history of pulmonary embolism; Z86.73 Personal history of transient ischemic attack (TIA), and cerebral infarction without residual deficits; Z90.49 Acquired absence of other specified parts of digestive tract; Z90.710 Acquired absence of both cervix and uterus; Z79.01 Long term (current) use of anticoagulants
CPT/HCPCS: 71045; 80053; 83690; 84484; 85027; 85610; 85730; 93005; 99281; 99285; J2060; J7120; S0028

== ENCOUNTER 2017-10-27 17:39 | Emergency (ER) | payer OTHER ==
[~2017-10-27] VITALS: Ht 170.2 cm; Wt 90.9 kg
[~2017-10-27 17:39] MED LIST changes: +XANAX0.25 MG PO
[2017-10-27 18:35] LABS: HEMOGLOBIN 13.2 G/DL (11.9-15.5); MCH 29.7 PG (29.0-34.0); MCHC 33.8 G/DL (30.0-36.0); MCV 87.8 FL (83-99); PLATELET COUNT 313 K/uL (156-360); RBC DIS.WIDTH-CV 12.6 % (11.8-14.6); RBC DIS.WIDTH-SD 40.7 % (39-53); RED BLOOD COUNT 4.44 M/uL (3.80-5.20); WHITE BLOOD COUNT 7.8 K/uL (4.1-10.2)
[2017-10-27 18:46] LABS: CHLORIDE 108 mEq/L (99-109); POTASSIUM 4.1 mEq/L (3.7-5.4); SODIUM 141 mEq/L (136-147)
[2017-10-27 18:48] LABS: GLUCOSE 94 mg/dL (70-99)
[2017-10-27 18:52] LABS: GFR ESTIMATE (CALCULATED) > 59 mL/min/
[2017-10-27 18:53] LABS: UREA NITROGEN (BUN) 15 mg/dL (9-23)
[2017-10-27 18:58] LABS: TROP-I INTERPRETATION NEGATIVE; TROPONIN-I < 0.01 ng/mL (0.0-0.30)
[2017-10-27] MEDS ORDERED: ATARAX,VISTARIL25 MG PO (20:45)
[2017-10-27 21:25] VITALS: BP 123/75
== END 2017-10-27 21:29 | disposition home or self-care (01) ==
LOC: EME 17:39
DX: R53.1 Weakness (principal); R19.7 Diarrhea, unspecified; F41.9 Anxiety disorder, unspecified; I10 Essential (primary) hypertension; G89.29 Other chronic pain; R10.12 Left upper quadrant pain; G43.909 Migraine, unspecified, not intractable, without status migrainosus; K21.9 Gastro-esophageal reflux disease without esophagitis; Z86.711 Personal history of pulmonary embolism; Z79.01 Long term (current) use of anticoagulants; Z87.19 Personal history of other diseases of the digestive system; Z86.73 Personal history of transient ischemic attack (TIA), and cerebral infarction without residual deficits; Z90.49 Acquired absence of other specified parts of digestive tract; Z88.5 Allergy status to narcotic agent; Z88.8 Allergy status to other drugs, medicaments and biological substances; Z91.041 Radiographic dye allergy status
CPT/HCPCS: 71046; 80048; 84484; 85027; 93005; 99281; 99285; J7040; Q0177

== ENCOUNTER 2017-11-04 11:50 | Emergency (ER) | payer OTHER ==
[~2017-11-04] VITALS: Ht 170.2 cm; Wt 92.6 kg
[~2017-11-04 11:50] MED LIST changes: +ATARAX,VISTARIL25 MG PO
[2017-11-04 12:35] LABS: BASOPHIL (%) 0.5 % (0-1); EOSINOPHIL COUNT 0.1 K/uL (0-0.3); HEMATOCRIT 37.2 % (36.0-46.0); HEMOGLOBIN 12.5 G/DL (11.9-15.5); IMMATURE GRANULOCYTE (%) 0.4 % (0.0-0.7); LYMPHOCYTE (%) 22.2 % (15-42); LYMPHOCYTE COUNT 1.7 K/uL (1.0-2.8); MCH 29.5 PG (29.0-34.0); MCHC 33.6 G/DL (30.0-36.0); MCV 87.7 FL (83-99); MONOCYTE (%) 4.3 % (3-12); MONOCYTE COUNT 0.3 K/uL (0-0.8); NEUTROPHIL (%) 71.6 % (45-76); NEUTROPHIL COUNT 5.6 K/uL (1.8-6.4); PLATELET COUNT 279 K/uL (156-360); RBC DIS.WIDTH-CV 12.7 % (11.8-14.6); RBC DIS.WIDTH-SD 40.4 % (39-53); RED BLOOD COUNT 4.24 M/uL (3.80-5.20); WHITE BLOOD COUNT 7.9 K/uL (4.1-10.2)
[2017-11-04 12:42] LABS: INTER. NORMALIZED RATIO 1.3
[2017-11-04 12:44] LABS: CHLORIDE 109 mEq/L (99-109); POTASSIUM 4.2 mEq/L (3.7-5.4); SODIUM 140 mEq/L (136-147)
[2017-11-04 12:46] LABS: GLUCOSE 119 mg/dL (70-99)
[2017-11-04 12:50] LABS: CREATININE 0.9 mg/dL (0.6-1.3); GFR ESTIMATE (CALCULATED) > 59 mL/min/
[2017-11-04 12:51] LABS: UREA NITROGEN (BUN) 15 mg/dL (9-23)
[2017-11-04] MEDS ORDERED: ANTIVERT25 MG PO (13:23)
[2017-11-04 13:44] VITALS: BP 135/80
== END 2017-11-04 13:46 | disposition home or self-care (01) ==
LOC: EME 11:50
PROVIDERS: Emergency Medicine
DX: R42 Dizziness and giddiness (principal); I10 Essential (primary) hypertension; Z86.711 Personal history of pulmonary embolism; Z79.01 Long term (current) use of anticoagulants; K21.9 Gastro-esophageal reflux disease without esophagitis; Z86.73 Personal history of transient ischemic attack (TIA), and cerebral infarction without residual deficits; F41.9 Anxiety disorder, unspecified; E03.9 Hypothyroidism, unspecified; Z88.5 Allergy status to narcotic agent
CPT/HCPCS: 70450; 80048; 85025; 85610; 93005; 99281; 99285

== ENCOUNTER 2017-11-10 14:09 | Emergency (ER) | payer OTHER ==
[~2017-11-10] VITALS: Ht 170.2 cm; Wt 92.5 kg
[~2017-11-10 14:09] MED LIST changes: +ANTIVERT25 MG PO
[2017-11-10 15:39] LABS: HEMATOCRIT 39.5 % (36.0-46.0); HEMOGLOBIN 13.4 G/DL (11.9-15.5); MCH 29.7 PG (29.0-34.0); MCHC 33.9 G/DL (30.0-36.0); MCV 87.6 FL (83-99); PLATELET COUNT 307 K/uL (156-360); RBC DIS.WIDTH-CV 12.8 % (11.8-14.6); RBC DIS.WIDTH-SD 40.8 % (39-53); RED BLOOD COUNT 4.51 M/uL (3.80-5.20); WHITE BLOOD COUNT 7.3 K/uL (4.1-10.2)
[2017-11-10 15:51] LABS: ALBUMIN 4.1 g/dL (3.2-4.8); CHLORIDE 109 mEq/L (99-109); POTASSIUM 4.7 mEq/L (3.7-5.4); SODIUM 139 mEq/L (136-147)
[2017-11-10 15:53] LABS: GLUCOSE 111 mg/dL (70-99); TOTAL PROTEIN 7.4 g/dL (6.4-8.3)
[2017-11-10 15:55] LABS: TOTAL BILIRUBIN 0.4 mg/dL (0.0-1.0)
[2017-11-10 15:57] LABS: ALKALINE PHOSPHATASE 65 IU/L (3-129); CREATININE 1.1 mg/dL (0.6-1.3); GFR ESTIMATE (CALCULATED) 56 mL/min/
[2017-11-10 15:58] LABS: AST (GOT) 19 IU/L (2-34); UREA NITROGEN (BUN) 14 mg/dL (9-23)
[2017-11-10 16:00] LABS: ALT (GPT) 14 IU/L (3-49)
[2017-11-10 17:10] VITALS: BP 134/87
== END 2017-11-10 17:12 | disposition home or self-care (01) ==
LOC: EME 14:09
PROVIDERS: Emergency Medicine
DX: R19.7 Diarrhea, unspecified (principal); I10 Essential (primary) hypertension; K21.9 Gastro-esophageal reflux disease without esophagitis; E03.9 Hypothyroidism, unspecified; G43.909 Migraine, unspecified, not intractable, without status migrainosus; F41.9 Anxiety disorder, unspecified; Z79.01 Long term (current) use of anticoagulants; Z86.711 Personal history of pulmonary embolism; Z86.73 Personal history of transient ischemic attack (TIA), and cerebral infarction without residual deficits; Z90.49 Acquired absence of other specified parts of digestive tract; Z87.39 Personal history of other diseases of the musculoskeletal system and connective tissue; Z87.19 Personal history of other diseases of the digestive system; Z88.5 Allergy status to narcotic agent; Z88.8 Allergy status to other drugs, medicaments and biological substances; Z91.041 Radiographic dye allergy status
CPT/HCPCS: 80053; 85027; 93005; 99281; 99285; J2405; J7030

== ENCOUNTER 2017-11-13 12:31 | Emergency (ER) | payer OTHER ==
[~2017-11-13] VITALS: Ht 170.2 cm; Wt 92.6 kg
[2017-11-13 13:41] LABS: HEMATOCRIT 39.5 % (36.0-46.0); HEMOGLOBIN 13.4 G/DL (11.9-15.5); MCH 29.9 PG (29.0-34.0); MCHC 33.9 G/DL (30.0-36.0); MCV 88.2 FL (83-99); PLATELET COUNT 315 K/uL (156-360); RBC DIS.WIDTH-CV 12.7 % (11.8-14.6); RBC DIS.WIDTH-SD 41.2 % (39-53); RED BLOOD COUNT 4.48 M/uL (3.80-5.20); WHITE BLOOD COUNT 7.1 K/uL (4.1-10.2)
[2017-11-13 13:54] LABS: CHLORIDE 104 mEq/L (99-109); POTASSIUM 3.9 mEq/L (3.7-5.4)
[2017-11-13 13:55] LABS: SODIUM 140 mEq/L (136-147)
[2017-11-13 13:56] LABS: GLUCOSE 102 mg/dL (70-99)
[2017-11-13 14:00] LABS: GFR ESTIMATE (CALCULATED) > 59 mL/min/
[2017-11-13 14:01] LABS: UREA NITROGEN (BUN) 11 mg/dL (9-23)
[2017-11-13 14:04] LABS: TROP-I INTERPRETATION NEGATIVE; TROPONIN-I < 0.01 ng/mL (0.0-0.30)
[2017-11-13 16:43] VITALS: BP 138/91
== END 2017-11-13 16:43 | disposition home or self-care (01) ==
LOC: EME 12:31
PROVIDERS: Nurse Practitioner Family
DX: R42 Dizziness and giddiness (principal); R19.7 Diarrhea, unspecified; Z86.711 Personal history of pulmonary embolism; Z79.01 Long term (current) use of anticoagulants; I10 Essential (primary) hypertension; K21.9 Gastro-esophageal reflux disease without esophagitis; F41.9 Anxiety disorder, unspecified; Z86.73 Personal history of transient ischemic attack (TIA), and cerebral infarction without residual deficits; Z88.5 Allergy status to narcotic agent
CPT/HCPCS: 71275; 80048; 84484; 85027; 93005; 99281; 99285; J1200; J2930; J7030

== ENCOUNTER 2017-11-20 03:14 | Emergency (ER) | payer OTHER ==
[~2017-11-20] VITALS: Ht 170.2 cm; Wt 92.2 kg
[2017-11-20 04:20] LABS: APPEARANCE SL.HAZY ((CLEAR)); BILIRUBIN NEGATIVE; BLOOD SMALL; COLOR YELLOW ((YELLOW)); GLUCOSE (STRIP) NEGATIVE; KETONES NEGATIVE; LEUKOCYTES NEGATIVE; NITRITE NEGATIVE; PROTEIN (STRIP) NEGATIVE; SPECIFIC GRAVITY 1.021 (1.000-1.030); UROBILINOGEN 0.2 MG/DL (0.2-1.0)
[2017-11-20 04:24] LABS: BACTERIA NONE SEEN /HPF; EPITHELIAL CELLS 2+ /HPF; MUCUS TRACE /LPF; RED BLOOD CELLS 0-5 /HPF (0-5); UCUL ADDED? NO; WHITE BLOOD CELLS 0-5 /HPF (0-5)
[2017-11-20 04:33] LABS: ALBUMIN 4.2 g/dL (3.2-4.8); CHLORIDE 108 mEq/L (99-109); POTASSIUM 3.7 mEq/L (3.7-5.4); SODIUM 140 mEq/L (136-147)
[2017-11-20 04:34] LABS: HEMOGLOBIN 13.4 G/DL (11.9-15.5); MCH 29.8 PG (29.0-34.0); MCHC 33.5 G/DL (30.0-36.0); MCV 89.1 FL (83-99); PLATELET COUNT 288 K/uL (156-360); RBC DIS.WIDTH-CV 12.8 % (11.8-14.6); RED BLOOD COUNT 4.49 M/uL (3.80-5.20); WHITE BLOOD COUNT 8.4 K/uL (4.1-10.2)
[2017-11-20 04:35] LABS: GLUCOSE 106 mg/dL (70-99); TOTAL PROTEIN 7.3 g/dL (6.4-8.3)
[2017-11-20 04:37] LABS: TOTAL BILIRUBIN 0.3 mg/dL (0.0-1.0)
[2017-11-20 04:39] LABS: ALKALINE PHOSPHATASE 67 IU/L (3-129); GFR ESTIMATE (CALCULATED) > 59 mL/min/
[2017-11-20 04:40] LABS: UREA NITROGEN (BUN) 15 mg/dL (9-23)
[2017-11-20 04:41] LABS: AST (GOT) 20 IU/L (2-34)
[2017-11-20 04:42] LABS: ALT (GPT) 17 IU/L (3-49); LIPASE 17 U/L (1.0-51.0)
[2017-11-20 04:45] LABS: TROP-I INTERPRETATION NEGATIVE; TROPONIN-I < 0.01 ng/mL (0.0-0.30)
[2017-11-20 04:49] LABS: MAGNESIUM 2.4 mg/dL (1.3-2.7)
[2017-11-20] MEDS ORDERED: PERCOCET 5/31 TABLET PO (05:54)
[2017-11-20] MEDS ORDERED: BENTYL20 MG PO (05:54)
[2017-11-20 06:33] VITALS: BP 127/76
[2017-11-21] MEDS ORDERED: BENTYL20 MG PO (15:16)
== END 2017-11-20 06:34 | disposition home or self-care (01) ==
LOC: EME 03:14
PROVIDERS: Emergency Medicine
DX: R00.2 Palpitations (principal); R10.32 Left lower quadrant pain; R11.0 Nausea; I10 Essential (primary) hypertension; K21.9 Gastro-esophageal reflux disease without esophagitis; E03.9 Hypothyroidism, unspecified; G43.909 Migraine, unspecified, not intractable, without status migrainosus; F41.9 Anxiety disorder, unspecified; Z79.01 Long term (current) use of anticoagulants; Z86.711 Personal history of pulmonary embolism; Z86.73 Personal history of transient ischemic attack (TIA), and cerebral infarction without residual deficits; Z90.49 Acquired absence of other specified parts of digestive tract; Z88.5 Allergy status to narcotic agent; Z88.8 Allergy status to other drugs, medicaments and biological substances; Z91.041 Radiographic dye allergy status
CPT/HCPCS: 80053; 81003; 83690; 83735; 84484; 85027; 93005; J1885; J2405; J7030; S0028

== ENCOUNTER 2017-11-21 11:43 | Emergency (ER) | payer OTHER ==
[~2017-11-21] VITALS: Ht 170.2 cm; Wt 92.2 kg
[2017-11-21 12:14] LABS: HEMATOCRIT 38.4 % (36.0-46.0); HEMOGLOBIN 12.8 G/DL (11.9-15.5); MCH 29.9 PG (29.0-34.0); MCHC 33.3 G/DL (30.0-36.0); MCV 89.7 FL (83-99); PLATELET COUNT 272 K/uL (156-360); RBC DIS.WIDTH-CV 12.8 % (11.8-14.6); RBC DIS.WIDTH-SD 41.8 % (39-53); RED BLOOD COUNT 4.28 M/uL (3.80-5.20); WHITE BLOOD COUNT 6.4 K/uL (4.1-10.2)
[2017-11-21 12:22] LABS: ALBUMIN 3.9 g/dL (3.2-4.8); CHLORIDE 109 mEq/L (99-109); POTASSIUM 4.2 mEq/L (3.7-5.4); SODIUM 139 mEq/L (136-147)
[2017-11-21 12:24] LABS: GLUCOSE 117 mg/dL (70-99); TOTAL PROTEIN 6.7 g/dL (6.4-8.3)
[2017-11-21 12:28] LABS: ALKALINE PHOSPHATASE 64 IU/L (3-129); CREATININE 0.9 mg/dL (0.6-1.3); GFR ESTIMATE (CALCULATED) > 59 mL/min/; TOTAL BILIRUBIN 0.4 mg/dL (0.0-1.0)
[2017-11-21 12:29] LABS: AST (GOT) 16 IU/L (2-34); UREA NITROGEN (BUN) 10 mg/dL (9-23)
[2017-11-21 12:31] LABS: ALT (GPT) 16 IU/L (3-49)
[2017-11-21 12:38] LABS: QUANTITATIVE HCG < 4.0 MIU/ML
[2017-11-21 13:12] LABS: LIPASE 13 U/L (1.0-51.0)
[2017-11-21 13:17] LABS: TROP-I INTERPRETATION NEGATIVE; TROPONIN-I < 0.01 ng/mL (0.0-0.30)
[2017-11-21 13:31] LABS: BILIRUBIN NEGATIVE; BLOOD NEGATIVE; COLOR STRAW ((YELLOW)); GLUCOSE (STRIP) NEGATIVE; KETONES NEGATIVE; LEUKOCYTES NEGATIVE; NITRITE NEGATIVE; PROTEIN (STRIP) NEGATIVE; SPECIFIC GRAVITY 1.006 (1.000-1.030); UROBILINOGEN 0.2 MG/DL (0.2-1.0)
[2017-11-21 13:32] LABS: APPEARANCE CLEAR ((CLEAR)); UCUL ADDED? NO
[2017-11-21] MEDS ORDERED: BENTYL20 MG PO (15:16)
[2017-11-21 15:40] VITALS: BP 116/83
== END 2017-11-21 16:04 | disposition home or self-care (01) ==
LOC: EME 11:43
DX: R10.12 Left upper quadrant pain (principal); K62.5 Hemorrhage of anus and rectum; Z86.711 Personal history of pulmonary embolism; Z98.890 Other specified postprocedural states; Z79.01 Long term (current) use of anticoagulants; Z90.49 Acquired absence of other specified parts of digestive tract; Z90.710 Acquired absence of both cervix and uterus; I10 Essential (primary) hypertension; F41.9 Anxiety disorder, unspecified; K21.9 Gastro-esophageal reflux disease without esophagitis; Z86.73 Personal history of transient ischemic attack (TIA), and cerebral infarction without residual deficits; Z88.5 Allergy status to narcotic agent; E03.9 Hypothyroidism, unspecified
CPT/HCPCS: 71250; 74176; 80053; 81003; 83690; 84484; 84702; 85027; 93005; 99281; 99284; J2270; J2405; J7030

== ENCOUNTER 2017-11-22 23:21 | Emergency (ER) | payer OTHER ==
[~2017-11-22] VITALS: Ht 170.2 cm; Wt 92.2 kg
[2017-11-22 23:59] VITALS: BP 125/97
== END 2017-11-23 01:40 | disposition left against medical advice (07) ==
LOC: EME 23:21
DX: R07.9 Chest pain, unspecified (principal); Z53.21 Procedure and treatment not carried out due to patient leaving prior to being seen by health care provider
CPT/HCPCS: 93005

== ENCOUNTER 2017-12-01 11:03 | Emergency (ER) | payer OTHER ==
[~2017-12-01] VITALS: Ht 170.2 cm; Wt 91.8 kg
[2017-12-01 11:36] LABS: HEMATOCRIT 42.2 % (36.0-46.0); HEMOGLOBIN 14.2 G/DL (11.9-15.5); MCH 29.8 PG (29.0-34.0); MCHC 33.6 G/DL (30.0-36.0); MCV 88.7 FL (83-99); PLATELET COUNT 308 K/uL (156-360); RBC DIS.WIDTH-CV 12.6 % (11.8-14.6); RBC DIS.WIDTH-SD 41.1 % (39-53); RED BLOOD COUNT 4.76 M/uL (3.80-5.20); WHITE BLOOD COUNT 5.6 K/uL (4.1-10.2)
[2017-12-01 11:44] LABS: CHLORIDE 106 mEq/L (99-109); POTASSIUM 4.2 mEq/L (3.7-5.4); SODIUM 138 mEq/L (136-147)
[2017-12-01 11:46] LABS: GLUCOSE 118 mg/dL (70-99)
[2017-12-01 11:50] LABS: GFR ESTIMATE (CALCULATED) > 59 mL/min/
[2017-12-01 11:51] LABS: UREA NITROGEN (BUN) 17 mg/dL (9-23)
[2017-12-01] MEDS ORDERED: ANTIVERT25 MG PO (14:41)
[2017-12-01 14:55] VITALS: BP 116/76
== END 2017-12-01 15:04 | disposition home or self-care (01) ==
LOC: EME 11:03
DX: R42 Dizziness and giddiness (principal); R11.2 Nausea with vomiting, unspecified; I10 Essential (primary) hypertension; F41.9 Anxiety disorder, unspecified; K21.9 Gastro-esophageal reflux disease without esophagitis; Z86.73 Personal history of transient ischemic attack (TIA), and cerebral infarction without residual deficits; E03.9 Hypothyroidism, unspecified; Z88.5 Allergy status to narcotic agent
CPT/HCPCS: 70450; 71046; 80048; 85027; 93005; 99281; 99285; J2405; J7030

== ENCOUNTER 2017-12-26 10:15 | Emergency (ER) | payer OTHER ==
[~2017-12-26] VITALS: Ht 170.2 cm; Wt 95.7 kg
[2017-12-26 11:09] LABS: BASOPHIL (%) 0.7 % (0-1); EOSINOPHIL (%) 3.1 % (0-5); EOSINOPHIL COUNT 0.2 K/uL (0-0.3); HEMATOCRIT 37.4 % (36.0-46.0); HEMOGLOBIN 12.4 G/DL (11.9-15.5); IMMATURE GRANULOCYTE (%) 0.3 % (0.0-0.7); LYMPHOCYTE (%) 32.5 % (15-42); LYMPHOCYTE COUNT 1.9 K/uL (1.0-2.8); MCH 29.1 PG (29.0-34.0); MCHC 33.2 G/DL (30.0-36.0); MCV 87.8 FL (83-99); MONOCYTE (%) 5.9 % (3-12); MONOCYTE COUNT 0.3 K/uL (0-0.8); NEUTROPHIL (%) 57.5 % (45-76); NEUTROPHIL COUNT 3.3 K/uL (1.8-6.4); PLATELET COUNT 261 K/uL (156-360); RBC DIS.WIDTH-CV 12.4 % (11.8-14.6); RBC DIS.WIDTH-SD 39.8 % (39-53); RED BLOOD COUNT 4.26 M/uL (3.80-5.20); WHITE BLOOD COUNT 5.8 K/uL (4.1-10.2)
[2017-12-26 11:18] LABS: PTT 28.9 SEC (25-37)
[2017-12-26 11:20] LABS: CHLORIDE 107 mEq/L (99-109); POTASSIUM 4.1 mEq/L (3.7-5.4); SODIUM 137 mEq/L (136-147)
[2017-12-26 11:22] LABS: GLUCOSE 110 mg/dL (70-99)
[2017-12-26 11:26] LABS: CREATININE 0.8 mg/dL (0.6-1.3); GFR ESTIMATE (CALCULATED) > 59 mL/min/
[2017-12-26 11:27] LABS: UREA NITROGEN (BUN) 21 mg/dL (9-23)
[2017-12-26 11:30] LABS: TROP-I INTERPRETATION NEGATIVE; TROPONIN-I < 0.01 ng/mL (0.0-0.30)
[2017-12-26 14:03] VITALS: BP 129/89
== END 2017-12-26 14:18 | disposition home or self-care (01) ==
LOC: EME 10:15
PROVIDERS: Emergency Medicine
DX: F41.9 Anxiety disorder, unspecified (principal); I10 Essential (primary) hypertension; I26.99 Other pulmonary embolism without acute cor pulmonale; Z86.711 Personal history of pulmonary embolism; Z79.01 Long term (current) use of anticoagulants; K21.9 Gastro-esophageal reflux disease without esophagitis; Z86.73 Personal history of transient ischemic attack (TIA), and cerebral infarction without residual deficits; Z88.5 Allergy status to narcotic agent; Z88.8 Allergy status to other drugs, medicaments and biological substances
CPT/HCPCS: 71275; 80048; 83880; 84484; 85025; 85610; 85730; 93005; 99281; 99285; J1200; J2060; J2930; J7040

== ENCOUNTER 2018-01-01 04:14 | Emergency (ER) | payer OTHER ==
[~2018-01-01] VITALS: Ht 170.2 cm; Wt 95.9 kg
[2018-01-01 05:07] LABS: APPEARANCE CLEAR ((CLEAR)); BILIRUBIN NEGATIVE; BLOOD NEGATIVE; COLOR YELLOW ((YELLOW)); GLUCOSE (STRIP) NEGATIVE; KETONES NEGATIVE; LEUKOCYTES NEGATIVE; NITRITE NEGATIVE; PROTEIN (STRIP) NEGATIVE; SPECIFIC GRAVITY 1.026 (1.000-1.030); UCUL ADDED? NO; UROBILINOGEN 0.2 MG/DL (0.2-1.0)
[2018-01-01 05:25] LABS: BASOPHIL (%) 0.6 % (0-1); BASOPHIL COUNT 0.1 K/uL (0-0.1); EOSINOPHIL (%) 2.3 % (0-5); EOSINOPHIL COUNT 0.2 K/uL (0-0.3); HEMATOCRIT 36.5 % (36.0-46.0); HEMOGLOBIN 12.1 G/DL (11.9-15.5); IMMATURE GRANULOCYTE (%) 0.4 % (0.0-0.7); LYMPHOCYTE (%) 24.6 % (15-42); LYMPHOCYTE COUNT 2.1 K/uL (1.0-2.8); MCH 29.4 PG (29.0-34.0); MCHC 33.2 G/DL (30.0-36.0); MCV 88.6 FL (83-99); MONOCYTE (%) 6.2 % (3-12); MONOCYTE COUNT 0.5 K/uL (0-0.8); NEUTROPHIL (%) 65.9 % (45-76); NEUTROPHIL COUNT 5.5 K/uL (1.8-6.4); PLATELET COUNT 267 K/uL (156-360); RBC DIS.WIDTH-CV 12.5 % (11.8-14.6); RBC DIS.WIDTH-SD 40.8 % (39-53); RED BLOOD COUNT 4.12 M/uL (3.80-5.20); WHITE BLOOD COUNT 8.4 K/uL (4.1-10.2)
[2018-01-01 05:37] LABS: ALBUMIN 3.7 g/dL (3.2-4.8); CHLORIDE 109 mEq/L (99-109); POTASSIUM 4.1 mEq/L (3.7-5.4); SODIUM 139 mEq/L (136-147)
[2018-01-01 05:38] LABS: MAGNESIUM 2.2 mg/dL (1.3-2.7)
[2018-01-01 05:39] LABS: GLUCOSE 122 mg/dL (70-99)
[2018-01-01 05:40] LABS: TOTAL PROTEIN 6.5 g/dL (6.4-8.3)
[2018-01-01 05:41] LABS: TOTAL BILIRUBIN 0.3 mg/dL (0.0-1.0)
[2018-01-01 05:43] LABS: ALKALINE PHOSPHATASE 58 IU/L (3-129); CREATININE 0.8 mg/dL (0.6-1.3); GFR ESTIMATE (CALCULATED) > 59 mL/min/
[2018-01-01 05:44] LABS: UREA NITROGEN (BUN) 19 mg/dL (9-23)
[2018-01-01 05:45] LABS: AST (GOT) 13 IU/L (2-34)
[2018-01-01 05:46] LABS: ALT (GPT) 16 IU/L (3-49)
[2018-01-01 05:47] LABS: LIPASE 14 U/L (1.0-51.0)
[2018-01-01 05:52] LABS: TROP-I INTERPRETATION NEGATIVE; TROPONIN-I < 0.01 ng/mL (0.0-0.30)
[2018-01-01 06:46] VITALS: BP 104/84
== END 2018-01-01 06:45 | disposition home or self-care (01) ==
LOC: EME → EDBD 04:14 → EME 06:45
PROVIDERS: Emergency Medicine
DX: R53.1 Weakness (principal); T44.7X5A Adverse effect of beta-adrenoreceptor antagonists, initial encounter; R53.81 Other malaise; G89.29 Other chronic pain; R10.84 Generalized abdominal pain; E03.9 Hypothyroidism, unspecified; Z86.73 Personal history of transient ischemic attack (TIA), and cerebral infarction without residual deficits; Z86.711 Personal history of pulmonary embolism; Z88.5 Allergy status to narcotic agent
CPT/HCPCS: 71045; 80053; 81003; 83690; 83735; 84484; 85025; 93005; 99281; 99284

== ENCOUNTER 2018-01-01 09:54 | Emergency (ER) | payer OTHER ==
[~2018-01-01] VITALS: Ht 170.2 cm; Wt 97.1 kg
[2018-01-01 10:26] LABS: BASOPHIL (%) 0.8 % (0-1); BASOPHIL COUNT 0.1 K/uL (0-0.1); EOSINOPHIL (%) 2.4 % (0-5); EOSINOPHIL COUNT 0.2 K/uL (0-0.3); HEMATOCRIT 38.1 % (36.0-46.0); HEMOGLOBIN 12.7 G/DL (11.9-15.5); IMMATURE GRANULOCYTE (%) 0.1 % (0.0-0.7); LYMPHOCYTE COUNT 2.2 K/uL (1.0-2.8); MCH 29.7 PG (29.0-34.0); MCHC 33.3 G/DL (30.0-36.0); MCV 89.2 FL (83-99); MONOCYTE (%) 6.1 % (3-12); MONOCYTE COUNT 0.4 K/uL (0-0.8); NEUTROPHIL (%) 60.6 % (45-76); NEUTROPHIL COUNT 4.4 K/uL (1.8-6.4); PLATELET COUNT 254 K/uL (156-360); RBC DIS.WIDTH-CV 12.6 % (11.8-14.6); RBC DIS.WIDTH-SD 41.1 % (39-53); RED BLOOD COUNT 4.27 M/uL (3.80-5.20); WHITE BLOOD COUNT 7.2 K/uL (4.1-10.2)
[2018-01-01 10:34] LABS: PTT 30.6 SEC (25-37)
[2018-01-01 10:37] LABS: ALBUMIN 3.8 g/dL (3.2-4.8); CHLORIDE 108 mEq/L (99-109); POTASSIUM 4.3 mEq/L (3.7-5.4); SODIUM 138 mEq/L (136-147)
[2018-01-01 10:40] LABS: GLUCOSE 119 mg/dL (70-99); TOTAL PROTEIN 6.6 g/dL (6.4-8.3)
[2018-01-01 10:43] LABS: ALKALINE PHOSPHATASE 60 IU/L (3-129); CREATININE 0.8 mg/dL (0.6-1.3); GFR ESTIMATE (CALCULATED) > 59 mL/min/
[2018-01-01 10:44] LABS: UREA NITROGEN (BUN) 16 mg/dL (9-23)
[2018-01-01 10:45] LABS: AST (GOT) 14 IU/L (2-34)
[2018-01-01 10:46] LABS: ALT (GPT) 16 IU/L (3-49)
[2018-01-01 10:47] LABS: TROP-I INTERPRETATION NEGATIVE; TROPONIN-I < 0.01 ng/mL (0.0-0.30)
[2018-01-01 10:48] LABS: TOTAL BILIRUBIN 0.5 mg/dL (0.0-1.0)
[2018-01-01 12:59] VITALS: BP 131/87
== END 2018-01-01 13:00 | disposition home or self-care (01) ==
LOC: EME 09:54
PROVIDERS: Emergency Medicine
DX: R10.13 Epigastric pain (principal); R07.89 Other chest pain; I10 Essential (primary) hypertension; K21.9 Gastro-esophageal reflux disease without esophagitis; F41.9 Anxiety disorder, unspecified; E03.9 Hypothyroidism, unspecified; Z86.73 Personal history of transient ischemic attack (TIA), and cerebral infarction without residual deficits; Z90.49 Acquired absence of other specified parts of digestive tract; Z88.5 Allergy status to narcotic agent; Z91.041 Radiographic dye allergy status
CPT/HCPCS: 74176; 80053; 84484; 85025 91; 85610; 85730; 93005; 99281; 99284; J7030

== ENCOUNTER 2018-01-12 12:39 | Emergency (ER) | payer OTHER ==
[~2018-01-12] VITALS: Ht 170.2 cm; Wt 95.9 kg
[2018-01-12 13:33] LABS: HEMATOCRIT 37.6 % (36.0-46.0); HEMOGLOBIN 12.4 G/DL (11.9-15.5); MCH 29.2 PG (29.0-34.0); MCV 88.5 FL (83-99); PLATELET COUNT 285 K/uL (156-360); RBC DIS.WIDTH-CV 12.7 % (11.8-14.6); RBC DIS.WIDTH-SD 41.2 % (39-53); RED BLOOD COUNT 4.25 M/uL (3.80-5.20); WHITE BLOOD COUNT 5.1 K/uL (4.1-10.2)
[2018-01-12 13:45] LABS: CHLORIDE 108 mEq/L (99-109); POTASSIUM 4.1 mEq/L (3.7-5.4); SODIUM 140 mEq/L (136-147)
[2018-01-12 13:46] LABS: GLUCOSE 105 mg/dL (70-99)
[2018-01-12 13:50] LABS: CREATININE 0.9 mg/dL (0.6-1.3); GFR ESTIMATE (CALCULATED) > 59 mL/min/
[2018-01-12 13:51] LABS: UREA NITROGEN (BUN) 13 mg/dL (9-23)
[2018-01-12 15:10] LABS: TOTAL PROTEIN 6.8 g/dL (6.4-8.3)
[2018-01-12 15:11] LABS: TOTAL BILIRUBIN 0.6 mg/dL (0.0-1.0)
[2018-01-12 15:12] LABS: ALKALINE PHOSPHATASE 55 IU/L (3-129)
[2018-01-12 15:15] LABS: AST (GOT) 15 IU/L (2-34); DIRECT BILIRUBIN 0.2 mg/dL (0.0-0.3)
[2018-01-12 15:16] LABS: ALT (GPT) 15 IU/L (3-49)
[2018-01-12 15:19] LABS: APPEARANCE CLEAR ((CLEAR)); BILIRUBIN NEGATIVE; BLOOD NEGATIVE; COLOR YELLOW ((YELLOW)); GLUCOSE (STRIP) NEGATIVE; KETONES NEGATIVE; LEUKOCYTES NEGATIVE; NITRITE NEGATIVE; PROTEIN (STRIP) NEGATIVE; SPECIFIC GRAVITY 1.016 (1.000-1.030); UCUL ADDED? NO; UROBILINOGEN 0.2 MG/DL (0.2-1.0)
[2018-01-12 16:53] LABS: LIPASE 7 U/L (1.0-51.0)
[2018-01-12 18:57] VITALS: BP 106/71
[2018-01-12 21:06] LABS: THYROTROPIN (TSH) 1.5 MIU/L (0.4-5.5)
== END 2018-01-12 18:59 | disposition home or self-care (01) ==
LOC: EME 12:39
PROVIDERS: Emergency Medicine
DX: K52.9 Noninfective gastroenteritis and colitis, unspecified (principal); I10 Essential (primary) hypertension; K21.9 Gastro-esophageal reflux disease without esophagitis; F41.9 Anxiety disorder, unspecified; Z86.73 Personal history of transient ischemic attack (TIA), and cerebral infarction without residual deficits; E03.9 Hypothyroidism, unspecified; Z90.49 Acquired absence of other specified parts of digestive tract; Z88.5 Allergy status to narcotic agent; Z91.041 Radiographic dye allergy status; Z90.710 Acquired absence of both cervix and uterus
CPT/HCPCS: 74177; 80048; 80076; 81003; 83690; 84443; 85027; 93005; 99281; 99285; J1200; J2270; J2405; J2930; J7030